=== PATIENT | male | born 1960 | race Caucasian/White ===

== ENCOUNTER 2016-06-29 12:27 | Inpatient (IN) | payer OTHER ==
[~2016-06-29] VITALS: Ht 177.8 cm; Wt 123.8 kg
[2016-06-29 13:15] VITALS: BP 106/72
[2016-06-29] MEDS ORDERED: ONDANSETRON PF 4 MG/2 ML VIAL. IV PRN (14:30)
[2016-06-29] MEDS ORDERED: DEXTROSE 50% 25 GM / 50ML DISP.SYRIN. IV PRN (14:30)
[2016-06-29 15:14] VITALS: BP 110/69
--- NOTE | 2016-06-29 15:29 | RAD ---
Exam performed: 2 views of the chest. Indication: abdominal pain, pt states came in for dehydration. Date of Service:06/29/2016 4:29 PM . Comparison : None available. Findings: PA and lateral radiographs of the chest reveal a normal cardiomediastinal contour. Pulmonary vascularity is unremarkable. The lungs are clear. No pleural fluid is seen. The visualized osseous structures are unremarkable. Impression: No acute cardiopulmonary process seen.
[2016-06-29] MEDS: IV NORMAL SALINE 1000ML BAG 1,000 ML IV SCH (16:34)
[2016-06-29 16:44] LABS: ALBUMIN 2.3 g/dL (3.4-5.0); ALBUMIN/GLOBULIN RATIO 0.4 (1.0-1.7); CALCIUM 9.4 mg/dL (8.5-10.1); CREATININE 1.7 mg/dL (0.7-1.3); GFR 41.8; POTASSIUM 5.8 mmol/L (3.5-5.1); TOTAL BILIRUBIN 0.4 mg/dL (0.2-1.0); TOTAL PROTEIN 7.8 g/dL (6.4-8.2)
--- NOTE | 2016-06-29 16:55 | EKG ---
[facility] [address] [place] [address] Test Date: 2016-06-29 Test Time: 16:49:40 Pat Name: DORA LIMA Department: Room: 536 1 Gender: M Wound Care Coordinator: DARIANA : 1960 Requested By: GEE SALGADO Order Number: [id number] Reading MD: Measurements Intervals [place] Rate: 107 P: 90 AL: 170 QRS: -40 QRSD: 84 T: 31 QT: 304 QTc: 411 Interpretive Statements SINUS TACHYCARDIA ABNORMAL LEFT AXIS DEVIATION LOW LIMB LEAD VOLTAGE QRS(T) CONTOUR ABNORMALITY CONSISTENT WITH INFERIOR INFARCT PROBABLY OLD ABNORMAL ECG RI6.01 Unconfirmed report No previous ECG available for comparison
--- NOTE | 2016-06-29 17:05 | RAD ---
Exam performed: Complete abdominal ultrasound. History: Diffuse abdominal pain. Date of service: 06/29/16. Comparison: None available Technique: Real-time grayscale imaging of the complete abdomen is performed and images are obtained. Findings: The liver demonstrates diffuse steatosis. No focal lesions are seen. The gallbladder is normal. The right kidney measures 10.3 cm in length without hydronephrosis or nephrolithiasis. The left kidney is enlarged and measures 14.3 cm. There is a large solid-appearing mass with calcifications measuring 8.0 x 7.5 x 6.1 cm emanating from the left inferior renal pole. Pancreas, IVC and aorta are poorly visualized. Spleen is normal. No free fluid. Impression: Solid appearing mass arising from the left kidney as outlined above. Evaluation with CT abdomen with contrast using renal protocol may be of additional benefit.
[2016-06-29] MEDS: PANTOPRAZOLE 40 MG TABLET. PO SCH (17:13)
[2016-06-29] MEDS: INSULIN ASPART 300 UNITS/3 ML INSULN.PEN SQ SCH (17:17)
--- NOTE | 2016-06-29 17:42 | PDOC ---
OBJECTIVE Vital Signs Vital Signs Date Time Temp Pulse Resp B/P Pulse Ox O2 Delivery O2 Flow Rate FiO2 06/29/16 15:14 97.3 102 20 110/69 98 Room Air 97.3 06/29/16 13:15 97.5 106 20 106/72 99 Room Air 97.5 ASSESSMENT/PLAN Assessment/Plan [id number] H&P dictated Problems: COMMENT Lab Laboratory Tests Test 06/29/16 15:00 06/29/16 17:00 Sodium Level 130mmol/L (136-145) Potassium Level 5.8mmol/L (3.5-5.1) Chloride Level 93mmol/L (98-107) Carbon Dioxide Level 21mmol/L (21-32) Anion Gap 16 (6-14) Blood Urea Nitrogen 51mg/dL (8-26) Creatinine 1.7mg/dL (0.7-1.3) Estimated GFR (Cockcroft-Gault) 41.8 BUN/Creatinine Ratio 30 (6-20) Glucose Level 335mg/dL (70-99) Calcium Level 9.4mg/dL (8.5-10.1) Total Bilirubin 0.4mg/dL (0.2-1.0) Aspartate Amino Transf (AST/SGOT) 19U/L (15-37) Alanine Aminotransferase (ALT/SGPT) 24U/L (16-63) Alkaline Phosphatase 156U/L (46-116) Troponin I Quantitative < 0.017ng/mL (0.000-0.055) Total Protein 7.8g/dL (6.4-8.2) Albumin 2.3g/dL (3.4-5.0) Albumin/Globulin Ratio 0.4 (1.0-1.7) Thyroid Stimulating Hormone (TSH) 0.683uIU/mL (0.358-3.74) Glucose (Fingerstick) 303mg/dL (70-99) GEE SALGADO MD Jun 29, 2016 17:42
[2016-06-29] MEDS ORDERED: METF10002 PO (17:47)
[2016-06-29] MEDS ORDERED: INSU100C SQ (17:47)
[2016-06-29] MEDS ORDERED: TRIA1TAB5 PO (17:47)
[2016-06-29] MEDS ORDERED: AMLO5TAB2 PO (17:47)
[2016-06-29] MEDS ORDERED: INSU100I13 SQ (17:47)
[2016-06-29] MEDS ORDERED: GLIM4TAB2 PO (17:47)
[2016-06-29] MEDS ORDERED: BENA40TA2 PO (17:47)
[2016-06-29 19:22] LABS: BILIRUBIN,URINE NEGATIVE (NEG); GLUCOSE,URINE 250 mg/dL (NEG); NITRITE,URINE NEGATIVE (NEG); PROTEIN,URINE NEGATIVE (NEG-TRACE); UROBILINOGEN,URINE 0.2 mg/dL (0.2 mg/dL)
[2016-06-29 19:32] LABS: BACTERIA,URINE 0 /HPF (0-FEW); RBC,URINE 0 /HPF (0-2); WBC,URINE 0 /HPF (0-4)
--- NOTE | 2016-06-29 19:55 | PREOP HP ---
DATE OF SERVICE: 06/29/2016 The patient's room number is 536. HISTORY OF PRESENT ILLNESS: The patient is a 55-year-old gentleman who has been sick for a couple of weeks with symptoms of nausea, vomiting and diarrhea and gastroenteritis symptoms. He was seen in the office for that and was starting to feel better with diarrhea. His blood pressure was low and his heart rate was high. At that time, he was instructed to hold all his blood pressure medication and cut his insulin in half. His labs came back the next day showing elevated BUN and creatinine. I called him and advised him that he needs to be admitted to be hydrated. He stated, however, that he is feeling much better and he did not want ____ in the hospital and that he will continue to drink fluid and come back within few days to repeat his labs. He comes in today. He is not having any more diarrhea and no more vomiting, but he is continuing to be nauseated. He is very weak. He has not been able to eat. He does not feel good. He is very pale and tired looking, generally not feeling good. PAST MEDICAL HISTORY: Significant for diabetes mellitus type 2, insulin requiring. He does have hypertension, hyperlipidemia, history of prostate cancer being treated with radiation and hormonal therapy. He does not have a known history of coronary artery disease. REVIEW OF SYSTEMS: CONSTITUTIONAL: He denies fever or chills, but complaining of fatigue and weakness. EYES: The patient denies visual changes. UPPER RESPIRATORY: He denies sore throat or congestion. CARDIOVASCULAR: He denies chest pain. PULMONARY: He denies shortness of breath. GASTROINTESTINAL: He does have abdominal discomfort and abdominal pain which has slightly improved. He did have diarrhea, which has stopped now, but he continues to have nausea and decreased appetite. GENITOURINARY: He does have urinary hesitancy and frequency. NEUROLOGY: He is weak in general. He denies focal weakness. He does not have headache. DERMATOLOGY: He denies rash. PHYSICAL EXAMINATION: VITAL SIGNS: His temperature 97.5, pulse 106, blood pressure 106/72. Oximetry 99 on room air. GENERAL: He is alert and oriented, pleasant, and cooperative. HEENT: His tympanic membranes are clear. His mucous membranes are dry. He is pale in color. NECK: Supple. LUNGS: Fairly clear to auscultation. HEART: Mildly tachycardic. ABDOMEN: Soft. Mild diffuse tenderness, mild epigastric tenderness, no rebound, no guarding, no masses, no bruits. EXTREMITIES: No edema, clubbing or cyanosis. IMPRESSION: 1. Recent gastroenteritis and persistent gastritis. 2. Acute renal failure due to dehydration, nausea, vomiting and diarrhea with electrolyte imbalance. 3. Diabetes mellitus type 2, insulin requiring. 4. History of prostate cancer. 5. Renal sonogram was done on his admission and showed a solid mass on the left kidney. A CT scan without contrast was ordered. Renal consult was done. We will continue hydration. Dr. Willams will be following during the weekend. GEE SALGADO MD DR: VALARIE/christopher JOB#: [id number] / [id number]
[2016-06-29 20:00] VITALS: BP 117/69
[2016-06-29 20:03] LABS: BASO # 0.1 x10^3/uL (0.0-0.2); BASO % 0 % (0-3); EOS % 0 % (0-3); HEMOGLOBIN 10.4 g/dL (13.0-17.5); LYMPH # 0.9 x10^3/uL (1.0-4.8); LYMPH % 5 % (24-48); MEAN CORPUSCULAR HEMOGLOBIN 27 pg (25-35); MEAN CORPUSCULAR HGB CONC 31 g/dL (31-37); MEAN CORPUSCULAR VOLUME 85 fL (79-100); MONO % 8 % (0-9); NEUT % 87 % (31-73); PLATELET COUNT 427 x10^3/uL (140-400); RED CELL DISTRIBUTION WIDTH 14.8 % (11.5-14.5)
[2016-06-29 20:43] LABS: PLT ESTIMATE INCREASED (ADEQUATE)
[2016-06-29] MEDS ORDERED: INSULIN DETEMIR 300 UNITS/3 ML INSULN.PEN. SQ SCH (21:00)
[2016-06-29] MEDS: ATORVASTATIN CALCIUM 10 MG TABLET. PO SCH (21:21)
[2016-06-29] MEDS: INSULIN DETEMIR 300 UNITS/3 ML INSULN.PEN. SQ SCH (21:24)
[2016-06-29] MEDS: ZOLPIDEM 5 MG TABLET. PO PRN (22:34)
[2016-06-29] MEDS: HYDROCODONE/APAP 7.5/325MG TABLET. PO PRN (22:34)
[2016-06-29 23:00] VITALS: BP 117/69
[2016-06-30] VITALS (7 sets, daily range): BP systolic 107–122; BP diastolic 65–73
[2016-06-30] MEDS: IV NORMAL SALINE 1000ML BAG 1,000 ML IV SCH ×3 (02:59→18:52)
[2016-06-30] MEDS: PANTOPRAZOLE 40 MG TABLET. PO SCH (08:15)
[2016-06-30] MEDS: BICALUTAMIDE 50 MG TABLET PO SCH (08:15)
[2016-06-30] MEDS: INSULIN ASPART 300 UNITS/3 ML INSULN.PEN SQ SCH ×6 (08:20→17:00)
[2016-06-30] MEDS ORDERED: MAGNESIUM SULFATE 2GM 50 ML IV PRN (10:45)
--- NOTE | 2016-06-30 10:47 | PDOC2 ---
DATE OF CONSULT Date of Consult 06/30/2015 REASON FOR CONSULT Reason for Consult VICKY REFERRING PHYSICIAN Referring Provider Dr Pulido CHIEF COMPLAINT Chief Complaint VICKY and other ABN Labs SOURCE Source Pt HPI HPI as dictated CURRENT MEDICATIONS Current Meds Current Medications Medications (Trade) Dose Ordered Sig/Adilia Route PRN Reason Start Time Stop Time Status Last Admin Dose Admin Sodium Chloride (Iv Sodium Chloride 0.9% 1000ml Bag) 1,000 ml @ 100 mls/hr Q10H IV 06/29/16 14:30 06/30/16 02:59 Insulin Aspart (Novolog) 0-9 UNITS TIDWMEALS SQ 06/29/16 17:00 06/30/16 08:21 Pantoprazole Sodium (Protonix) 40 mg DAILYAC PO 06/29/16 16:30 06/30/16 08:15 Atorvastatin Calcium (Lipitor) 10 mg QHS PO 06/29/16 21:00 06/29/16 21:21 Bicalutamide (Casodex) 50 mg DAILY PO 06/30/16 09:00 06/30/16 08:15 Insulin Detemir (Levemir) 40 units QHS SQ 06/29/16 21:00 06/29/16 21:24 Insulin Aspart (Novolog) 10 units TIDAC SQ 06/30/16 07:30 06/30/16 08:20 Acetaminophen/ Hydrocodone Bitart (Lortab 7.5/325) 1 tab PRN Q4HRS PRN PO SEVERE PAIN 06/29/16 22:00 06/29/16 22:34 Zolpidem Tartrate (Ambien) 5 mg PRN QHS PRN PO INSOMNIA, MAY REPEAT IN 1HR 06/29/16 22:00 06/29/16 22:34 Home Meds Reviewed as documented ALLERGIES Allergies: Coded Allergies: No Known Allergies (Verified Allergy, Unknown, 06/29/16) ROS ROS as outlined in HPI VITAL SIGNS Vital Signs VS - Last 72 Hours, by Label Date Time Temp Pulse Resp B/P Pulse Ox O2 Delivery O2 Flow Rate FiO2 06/30/16 07:00 98.4 110 20 122/72 100 Nasal Cannula 2.0 98.4 06/30/16 04:41 98.6 108 18 117/69 98 Room Air 2.0 98.6 06/30/16 03:00 208.6 108 117/69 98 Room Air 2.0 208.6 06/29/16 23:57 20 Room Air 06/29/16 23:00 208.6 108 117/69 98 Room Air 2.0 208.6 06/29/16 22:34 20 Room Air 06/29/16 21:20 Room Air 06/29/16 20:00 98.1 108 20 117/69 98 Room Air 2.0 98.1 06/29/16 20:00 208.6 108 117/69 98 Room Air 2.0 208.6 06/29/16 15:14 97.3 102 20 110/69 98 Room Air 97.3 06/29/16 14:00 Room Air 06/29/16 13:15 97.5 106 20 106/72 99 Room Air 97.5 PHYSICAL EXAM Physical Exam General Appearance: Awake Alert Oriented x 3 In no Distress Eyes: VIsion Unchanged Conjunctiva Normal EN: No EN Drainage Mucous Memb. moist Neck: no JVD no JVP Supple no Thyromegaly CVS: S1 S2 no Murmur No Gallop No Rub no Edema; Tachy Resp: no Rales no Rhonchi no Acc. 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 Current FLuid and E-lyte status does not necessitate emergent need for Dialysis. Will re-evaluate for Dialysis in am Vol Dpeltion - (from NVD and diuretics) IVF as ongoing - symptomatically better already Renal Mass- CT done and report pending - IVC once Creat is better. May need NAC too ^K OA - recheck labs for today - suspect due to ^ FSBS. Underlying DM (insuline using) (? Uncontrolled vs due to recent decrease in Meds as outlined in H&P ) - defer to Dr Pulido. Anemia: check Iron; may need Epogen Transfuse as needed. HTN: Current BP meds reviewed. See orders for changes. ? Underlying CKD cannot be ruled out. ^ Protein gap - PEPs as ordered HypoNatremia - anticipate imtpovement with IV NS - suspect due to NV Discussed Plan of Care and prognosis etc. at length with pt. IMAGES Images: Solid appearing mass arising from the left kidney as outlined above. Evaluation with CT abdomen with contrast using renal protocol may be of additional benefit. LABS Labs: Laboratory Tests Test 06/29/16 15:00 06/29/16 17:00 06/29/16 18:55 06/29/16 19:45 Sodium Level 130mmol/L (136-145) Chloride Level 93mmol/L (98-107) Carbon Dioxide Level 21mmol/L (21-32) Anion Gap 16 (6-14) Blood Urea Nitrogen 51mg/dL (8-26) Estimated GFR (Cockcroft-Gault) 41.8 BUN/Creatinine Ratio 30 (6-20) Glucose Level 335mg/dL (70-99) Calcium Level 9.4mg/dL (8.5-10.1) Total Bilirubin 0.4mg/dL (0.2-1.0) Aspartate Amino Transf (AST/SGOT) 19U/L (15-37) Alkaline Phosphatase 156U/L (46-116) Troponin I Quantitative < 0.017ng/mL (0.000-0.055) Total Protein 7.8g/dL (6.4-8.2) Albumin 2.3g/dL (3.4-5.0) Albumin/Globulin Ratio 0.4 (1.0-1.7) Glucose (Fingerstick) 303mg/dL (70-99) Urine Collection Type Unknown Urine Color Yellow Urine Clarity Clear Urine pH 5.0 Urine Specific [place] 1.020 Urine Protein Negativemg/dL (NEG-TRACE) Urine Glucose (UA) 250mg/dL (NEG) Urine Ketones (Stick) Tracemg/dL (NEG) Urine Blood Negative (NEG) Urine Nitrite Negative (NEG) Urine Bilirubin Negative (NEG) Urine Urobilinogen Dipstick 0.2mg/dL (0.2 mg/dL) Urine Leukocyte Esterase Negative (NEG) Urine RBC 0/HPF (0-2) Urine WBC 0/HPF (0-4) Urine Bacteria 0/HPF (0-FEW) Urine Hyaline Casts Moderate/HPF Urine Mucus Mod/LPF White Blood Count 18.0x10^3/uL (4.0-11.0) Red Blood Count 3.90x10^6/uL (4.30-5.70) Hemoglobin 10.4g/dL (13.0-17.5) Hematocrit 33.0% (39.0-53.0) Mean Corpuscular Volume 85fL (79-100) Mean Corpuscular Hemoglobin 27pg (25-35) Mean Corpuscular Hemoglobin Concent 31g/dL (31-37) Red Cell Distribution Width 14.8% (11.5-14.5) Platelet Count 427x10^3/uL (140-400) Neutrophils (%) (Auto) 87% (31-73) Lymphocytes (%) (Auto) 5% (24-48) Monocytes (%) (Auto) 8% (0-9) Eosinophils (%) (Auto) 0% (0-3) Basophils (%) (Auto) 0% (0-3) Neutrophils # (Auto) 15.6x10^3uL (1.8-7.7) Lymphocytes # (Auto) 0.9x10^3/uL (1.0-4.8) Monocytes # (Auto) 1.4x10^3/uL (0.0-1.1) Eosinophils # (Auto) 0.0x10^3/uL (0.0-0.7) Basophils # (Auto) 0.1x10^3/uL (0.0-0.2) Segmented Neutrophils % 89% (35-66) Band Neutrophils % 2% (0-9) Lymphocytes % 4% (24-48) Monocytes % 5% (0-10) Platelet Estimate Increased (ADEQUATE) Test 06/29/16 21:20 06/30/16 08:12 Glucose (Fingerstick) 318mg/dL (70-99) 206mg/dL (70-99) CASPER GARCIA MD Jun 30, 2016 10:46
--- NOTE | 2016-06-30 11:41 | PDOC ---
GENERAL General: vss and afebrile. awake and alert. family in attendance. feels better today and family feels he looks better. renal consult appreciated. will repeat labs in am. solid mass left kidney on us with ct pending. continue hydration for now and await pending tests. per family has been going downhill for at least a couple of months. has symptoms suggestive of gastroparesis. hopefully does not have advanced renal cell ca. Problems: VITAL SIGNS Vital Signs: Vital Signs Date Time Temp Pulse Resp B/P Pulse Ox O2 Delivery O2 Flow Rate FiO2 06/30/16 11:00 97.9 105 20 107/65 100 Nasal Cannula 2.0 97.9 I & O I & O Intake and Output 06/30/16 07:00 Intake Total 1456 ml Output Total 450 ml Balance 1006 ml Intake Oral 240 ml IV Total 1216 ml Output Urine Total 450 ml # Voids 2 ALLERGIES Allergies: Allergies Coded Allergies Type Severity Reaction Last Updated Verified No Known Allergies Allergy Unknown 06/29/16 Yes MEDS Medications: Current Medications Medications (Trade) Dose Ordered Sig/Adilia Start Time Stop Time Status Last Admin Dose Admin Acetaminophen/ Hydrocodone Bitart (Lortab 7.5/325) 1 tab PRN Q4HRS PRN 06/29/16 22:00 06/29/16 22:34 1 TAB Atorvastatin Calcium (Lipitor) 10 mg QHS 06/29/16 21:00 06/29/16 21:21 10 MG Bicalutamide (Casodex) 50 mg DAILY 06/30/16 09:00 06/30/16 08:15 50 MG Dextrose 12.5 gm PRN Q15MIN PRN 06/29/16 14:30 Insulin Aspart (Novolog) 10 units TIDAC 06/30/16 07:30 06/30/16 08:20 10 UNITS Insulin Detemir (Levemir) 40 units QHS 06/29/16 21:00 06/29/16 21:24 40 UNITS Magnesium Sulfate/ Dextrose (Magnesium Sulfate PREMIX 2GM) 50 ml @ 25 mls/hr PRN DAILY PRN 06/30/16 10:45 Ondansetron HCl (Zofran) 4 mg PRN Q4HRS PRN 06/29/16 14:30 Pantoprazole Sodium (Protonix) 40 mg DAILYAC 06/29/16 16:30 06/30/16 08:15 40 MG Sodium Chloride (Iv Sodium Chloride 0.9% 1000ml Bag) 1,000 ml @ 125 mls/hr Q8H 06/29/16 14:30 06/30/16 11:11 125 MLS/HR Zolpidem Tartrate 5 mg 5 mg PRN QHS PRN 06/29/16 22:00 06/29/16 22:34 5 MG LAB Lab: Laboratory Tests Test 06/29/16 15:00 06/29/16 17:00 06/29/16 18:55 06/29/16 19:45 Sodium Level 130mmol/L (136-145) Potassium Level 5.8mmol/L (3.5-5.1) Chloride Level 93mmol/L (98-107) Carbon Dioxide Level 21mmol/L (21-32) Anion Gap 16 (6-14) Blood Urea Nitrogen 51mg/dL (8-26) Creatinine 1.7mg/dL (0.7-1.3) Estimated GFR (Cockcroft-Gault) 41.8 BUN/Creatinine Ratio 30 (6-20) Glucose Level 335mg/dL (70-99) Calcium Level 9.4mg/dL (8.5-10.1) Total Bilirubin 0.4mg/dL (0.2-1.0) Aspartate Amino Transf (AST/SGOT) 19U/L (15-37) Alanine Aminotransferase (ALT/SGPT) 24U/L (16-63) Alkaline Phosphatase 156U/L (46-116) Troponin I Quantitative < 0.017ng/mL (0.000-0.055) Total Protein 7.8g/dL (6.4-8.2) Albumin 2.3g/dL (3.4-5.0) Albumin/Globulin Ratio 0.4 (1.0-1.7) Thyroid Stimulating Hormone (TSH) 0.683uIU/mL (0.358-3.74) Glucose (Fingerstick) 303mg/dL (70-99) Urine Collection Type Unknown Urine Color Yellow Urine Clarity Clear Urine pH 5.0 Urine Specific [place] 1.020 Urine Protein Negativemg/dL (NEG-TRACE) Urine Glucose (UA) 250mg/dL (NEG) Urine Ketones (Stick) Tracemg/dL (NEG) Urine Blood Negative (NEG) Urine Nitrite Negative (NEG) Urine Bilirubin Negative (NEG) Urine Urobilinogen Dipstick 0.2mg/dL (0.2 mg/dL) Urine Leukocyte Esterase Negative (NEG) Urine RBC 0/HPF (0-2) Urine WBC 0/HPF (0-4) Urine Bacteria 0/HPF (0-FEW) Urine Hyaline Casts Moderate/HPF Urine Mucus Mod/LPF White Blood Count 18.0x10^3/uL (4.0-11.0) Red Blood Count 3.90x10^6/uL (4.30-5.70) Hemoglobin 10.4g/dL (13.0-17.5) Hematocrit 33.0% (39.0-53.0) Mean Corpuscular Volume 85fL (79-100) Mean Corpuscular Hemoglobin 27pg (25-35) Mean Corpuscular Hemoglobin Concent 31g/dL (31-37) Red Cell Distribution Width 14.8% (11.5-14.5) Platelet Count 427x10^3/uL (140-400) Neutrophils (%) (Auto) 87% (31-73) Lymphocytes (%) (Auto) 5% (24-48) Monocytes (%) (Auto) 8% (0-9) Eosinophils (%) (Auto) 0% (0-3) Basophils (%) (Auto) 0% (0-3) Neutrophils # (Auto) 15.6x10^3uL (1.8-7.7) Lymphocytes # (Auto) 0.9x10^3/uL (1.0-4.8) Monocytes # (Auto) 1.4x10^3/uL (0.0-1.1) Eosinophils # (Auto) 0.0x10^3/uL (0.0-0.7) Basophils # (Auto) 0.1x10^3/uL (0.0-0.2) Segmented Neutrophils % 89% (35-66) Band Neutrophils % 2% (0-9) Lymphocytes % 4% (24-48) Monocytes % 5% (0-10) Platelet Estimate Increased (ADEQUATE) Test 06/29/16 21:20 06/30/16 08:12 Glucose (Fingerstick) 318mg/dL (70-99) 206mg/dL (70-99) APPL,AGATHA A MD Jun 30, 2016 11:41
[2016-06-30 11:57] LABS: IRON,SERUM 20 ug/dL (65-175)
[2016-06-30 11:58] LABS: % SAT IRON 11 % (15-34)
--- NOTE | 2016-06-30 14:04 | RAD ---
CT scan of the abdomen and pelvis without contrast 06/29/2016 Clinical history: Solid mass seen on ultrasound involving the left kidney. Further evaluation with a CT scan was recommended. Technique: Unenhanced, contiguous, 2 mm axial sections were obtained through the abdomen and pelvis. Intravenous contrast was not administered due to the patient's diminished GFR. One or more of the following individualized dose reduction techniques were utilized for this study: 1. Automated exposure control. 2. Adjustment of the mA and/or kV according to patient size. 3. Use of iterative reconstruction technique. Findings: Comparison is made to the patient's ultrasound of the abdomen dated 06/29/2016. Images through the lung bases demonstrate linear bands of subsegmental atelectasis bilaterally. A 3 mm calcified granuloma is seen involving the right lower lobe. Several poorly defined low-attenuation masslike areas are seen scattered throughout the right lobe of the liver. These measure 2 to 5.5 cm in size. They are concerning for hepatic metastasis. The spleen, right adrenal gland and right kidney are within normal limits. A rounded solid mass is seen extending anteriorly from the lower pole of the left kidney. This corresponds to the abnormality seen on ultrasound. It measures 7.5 x 7.5 x 6.2 cm in transverse, craniocaudal and AP dimensions. It is concerning for a neoplastic process (renal cell carcinoma). A heterogeneous poorly defined mass is seen which involves both the left adrenal gland and the distal body of the pancreas. It measures 4.8 x 4.0 x 4.4 cm and transverse, AP and craniocaudal dimensions.. Based on involvement of both the pancreas and adrenal gland. It is difficult to determine whether this mass represents an adrenal carcinoma invading the pancreas versus a pancreatic carcinoma invading the left adrenal gland. Mild atherosclerotic calcification of the abdominal aorta and its branches is noted. The abdominal aorta tapers normally. The gallbladder is slightly contracted. No free fluid or free air is seen within the abdomen. There is no evidence of bowel obstruction. No retroperitoneal lymphadenopathy is seen. The appendix is well visualized and is within normal limits. Images through the pelvis demonstrate the urinary bladder distended with urine. Fiducial type markers are seen in the region of the prostate gland. No free fluid is seen. No pelvic or inguinal lymphadenopathy is noted. Degenerative changes are seen involving the the lower thoracic and mid and lower lumbar spine and both hips. Impression: 1. 7.5 cm solid mass is seen arising from the lower pole of the left kidney. This corresponds to the abnormality seen on the patient's ultrasound. It is concerning for a renal neoplasm. 2. 4.8 cm poorly defined mass is seen which involves the left adrenal gland and body of the pancreas. It is difficult to determine whether this mass represents an adrenal carcinoma invading the pancreas versus a pancreatic carcinoma invading the left adrenal gland as outlined above. 3. Multiple low-attenuation mass lesions are seen involving the liver which are concerning for hepatic metastasis. The patient's nurse was notified of this finding.
[2016-06-30] MEDS: ATORVASTATIN CALCIUM 10 MG TABLET. PO SCH (21:45)
[2016-06-30] MEDS: INSULIN DETEMIR 300 UNITS/3 ML INSULN.PEN. SQ SCH (21:48)
--- NOTE | 2016-06-30 22:35 | CONS ---
DATE OF CONSULTATION: 06/30/2016 PRIMARY PHYSICIAN: Mukund Pulido MD REASON FOR CONSULTATION: Acute renal failure. HISTORY OF PRESENT ILLNESS: The patient is a pleasant 55-year-old gentleman who apparently has had nausea, vomiting and diarrhea for about a week. He was seen in Dr. Pulido's office and medication changes were made. He, however, did not feel better and was admitted to the hospital for further evaluation. His potassium was noted to be elevated, he is anemic, and BUN and creatinine were also elevated. He was noted to have a low sodium at 130. In this setting, we were asked to see him for all of the above problems. He has nausea, vomiting, apparently has improved significantly, currently by his reports. He did undergo an ultrasound of his kidneys and has a history of prostate cancer. He was also noted to have elevation of his fingerstick sugars. He is felt to have some fevers and chills, prior to this, his urine was dark, urine output was decreased by his reports, no orthostasis per se. PAST MEDICAL HISTORY: Significant for: 1. Diabetes for at least 12 years. No known diabetic retinopathy per se that he admits to. 2. Hypertension, on numerous blood pressure medications. 3. Now renal mass as noted. 4. Prostate cancer, for which he is on status post radiation. 5. History of substance abuse in the past. 6. No known history of coronary artery disease or CHF that he admits to. FAMILY HISTORY: Positive for one aunt who was diabetic and on dialysis. Diabetes does run in his family. SOCIAL HISTORY: Lives by himself, nonsmoker, nondrinker, positive substance abuse in the past. For rest of the details, please see electronic records. CASPER GARCIA MD DR: YOUSIF/christopher JOB#: [id number] / [id number]
[2016-07-01] MEDS: IV NORMAL SALINE 1000ML BAG 1,000 ML IV SCH ×2 (02:22→10:15)
[2016-07-01 03:00] VITALS: BP 95/58
[2016-07-01] MEDS: PANTOPRAZOLE 40 MG TABLET. PO SCH (06:33)
[2016-07-01 06:46] LABS: BASO % 0 % (0-3); EOS % 0 % (0-3); HEMATOCRIT 27.2 % (39.0-53.0); HEMOGLOBIN 8.7 g/dL (13.0-17.5); LYMPH # 0.9 x10^3/uL (1.0-4.8); LYMPH % 5 % (24-48); MEAN CORPUSCULAR HEMOGLOBIN 27 pg (25-35); MEAN CORPUSCULAR HGB CONC 32 g/dL (31-37); MEAN CORPUSCULAR VOLUME 84 fL (79-100); MONO % 9 % (0-9); NEUT % 85 % (31-73); PLATELET COUNT 342 x10^3/uL (140-400); RED BLOOD COUNT 3.25 x10^6/uL (4.30-5.70); RED CELL DISTRIBUTION WIDTH 14.6 % (11.5-14.5); WHITE BLOOD COUNT 16.6 x10^3/uL (4.0-11.0)
[2016-07-01 07:00] VITALS: BP 129/78
[2016-07-01 07:09] LABS: ALBUMIN 1.6 g/dL (3.4-5.0); ALBUMIN/GLOBULIN RATIO 0.3 (1.0-1.7); CALCIUM 8.6 mg/dL (8.5-10.1); CREATININE 1.1 mg/dL (0.7-1.3); POTASSIUM 3.8 mmol/L (3.5-5.1); TOTAL BILIRUBIN 0.4 mg/dL (0.2-1.0); TOTAL PROTEIN 7.1 g/dL (6.4-8.2)
[2016-07-01 07:13] LABS: PHOSPHORUS 2.3 mg/dL (2.6-4.7)
[2016-07-01] MEDS: INSULIN ASPART 300 UNITS/3 ML INSULN.PEN SQ SCH ×6 (08:26→17:46)
[2016-07-01] MEDS: BICALUTAMIDE 50 MG TABLET PO SCH (08:27)
[2016-07-01 11:00] VITALS: BP 103/55
--- NOTE | 2016-07-01 11:59 | PDOC ---
SUBJECTIVE ROS VICKY Doing OK overall CVS: no Orthopnea, no CP RESP: no SOB, n PLATA GI: no Nausea, no Vomiting : no Dysuria, no Urgency OBJECTIVE Vital Signs Vital Signs Date Time Temp Pulse Resp B/P Pulse Ox O2 Delivery O2 Flow Rate FiO2 07/01/16 11:00 99.9 120 20 103/55 98 Room Air 99.9 07/01/16 07:00 2.0 I & 0 Intake and Output 07/01/16 07:00 Intake Total 750 ml Output Total 1700 ml Balance -950 ml Intake Oral 750 ml Output Urine Total 1700 ml PHYSICAL EXAM Physical Exam General Appearance: Awake Alert Oriented x 3 In no Distress Eyes: VIsion Unchanged Conjunctiva Normal EN: No EN Drainage Mucous Memb. moist Neck: no JVD no JVP Supple no Thyromegaly CVS: S1 S2 no Murmur No Gallop No Rub no Edema; Tachy Resp: no Rales no Rhonchi no Acc. Muscle use GI: BAS +ve NO Bruit Non Tender Non Distended : no CVA tenderness; no Suprapubic Tenderness ASSESSMENT/PLAN Assessment/Plan ARF: suspect VMN from NVD. now resolved Vol Dpeltion - better and UO has picked up - watch off of IVF Renal Mass- CT report noted - Consider ONCOlogy eval ^K OA - resolved Underlying DM (insulin using) (? Uncontrolled vs due to recent decrease in Meds as outlined in H&P ) - defer to Dr Pulido. Anemia: check Iron; may need Epogen Transfuse as needed. HTN: Current BP meds reviewed. See orders for changes. Low HPos - supplement HypoNatremia - resolved Discussed Plan of Care and prognosis etc. at length with pt. COMMENT/RELEVANT DATA Meds Current Medications Medications (Trade) Dose Ordered Sig/Adilia Start Time Stop Time Status Last Admin Dose Admin Acetaminophen/ Hydrocodone Bitart (Lortab 7.5/325) 1 tab PRN Q4HRS PRN 06/29/16 22:00 06/29/16 22:34 1 TAB Atorvastatin Calcium (Lipitor) 10 mg QHS 06/29/16 21:00 06/30/16 21:45 10 MG Bicalutamide (Casodex) 50 mg DAILY 06/30/16 09:00 07/01/16 08:27 50 MG Dextrose 12.5 gm PRN Q15MIN PRN 06/29/16 14:30 Insulin Aspart (Novolog) 10 units TIDAC 06/30/16 07:30 07/01/16 08:26 10 UNITS Insulin Detemir (Levemir) 40 units QHS 06/29/16 21:00 06/30/16 21:48 40 UNITS Magnesium Sulfate/ Dextrose (Magnesium Sulfate PREMIX 2GM) 50 ml @ 25 mls/hr PRN DAILY PRN 06/30/16 10:45 Ondansetron HCl (Zofran) 4 mg PRN Q4HRS PRN 06/29/16 14:30 Pantoprazole Sodium (Protonix) 40 mg DAILYAC 06/29/16 16:30 07/01/16 06:33 40 MG Sodium Chloride (Iv Sodium Chloride 0.9% 1000ml Bag) 1,000 ml @ 125 mls/hr Q8H 06/29/16 14:30 07/01/16 10:15 125 MLS/HR Zolpidem Tartrate 5 mg 5 mg PRN QHS PRN 06/29/16 22:00 06/29/16 22:34 5 MG Lab Laboratory Tests Test 06/30/16 16:57 06/30/16 20:50 07/01/16 06:20 07/01/16 08:09 Glucose (Fingerstick) 115mg/dL (70-99) 157mg/dL (70-99) 174mg/dL (70-99) White Blood Count 16.6x10^3/uL (4.0-11.0) Red Blood Count 3.25x10^6/uL (4.30-5.70) Hemoglobin 8.7g/dL (13.0-17.5) Hematocrit 27.2% (39.0-53.0) Mean Corpuscular Volume 84fL (79-100) Mean Corpuscular Hemoglobin 27pg (25-35) Mean Corpuscular Hemoglobin Concent 32g/dL (31-37) Red Cell Distribution Width 14.6% (11.5-14.5) Platelet Count 342x10^3/uL (140-400) Neutrophils (%) (Auto) 85% (31-73) Lymphocytes (%) (Auto) 5% (24-48) Monocytes (%) (Auto) 9% (0-9) Eosinophils (%) (Auto) 0% (0-3) Basophils (%) (Auto) 0% (0-3) Neutrophils # (Auto) 14.1x10^3uL (1.8-7.7) Lymphocytes # (Auto) 0.9x10^3/uL (1.0-4.8) Monocytes # (Auto) 1.5x10^3/uL (0.0-1.1) Eosinophils # (Auto) 0.0x10^3/uL (0.0-0.7) Basophils # (Auto) 0.0x10^3/uL (0.0-0.2) Sodium Level 134mmol/L (136-145) Potassium Level 3.8mmol/L (3.5-5.1) Chloride Level 100mmol/L (98-107) Carbon Dioxide Level 23mmol/L (21-32) Anion Gap 11 (6-14) Blood Urea Nitrogen 19mg/dL (8-26) Creatinine 1.1mg/dL (0.7-1.3) Estimated GFR (Cockcroft-Gault) 69.0 BUN/Creatinine Ratio 17 (6-20) Glucose Level 202mg/dL (70-99) Calcium Level 8.6mg/dL (8.5-10.1) Phosphorus Level 2.3mg/dL (2.6-4.7) Magnesium Level 1.9mg/dL (1.8-2.4) Total Bilirubin 0.4mg/dL (0.2-1.0) Aspartate Amino Transf (AST/SGOT) 21U/L (15-37) Alanine Aminotransferase (ALT/SGPT) 20U/L (16-63) Alkaline Phosphatase 118U/L (46-116) Total Protein 7.1g/dL (6.4-8.2) Albumin 1.6g/dL (3.4-5.0) Albumin/Globulin Ratio 0.3 (1.0-1.7) Test 07/01/16 10:43 Glucose (Fingerstick) 217mg/dL (70-99) Other Impression: 1. 7.5 cm solid mass is seen arising from the lower pole of the left kidney. This corresponds to the abnormality seen on the patient's ultrasound. It is concerning for a renal neoplasm. 2. 4.8 cm poorly defined mass is seen which involves the left adrenal gland and body of the pancreas. It is difficult to determine whether this mass represents an adrenal carcinoma invading the pancreas versus a pancreatic carcinoma invading the left adrenal gland as outlined above. 3. Multiple low-attenuation mass lesions are seen involving the liver which are concerning for hepatic metastasis. The patient's nurse was notified of this finding. CASPER GARCIA MD Jul 01, 2016 11:59
--- NOTE | 2016-07-01 12:00 | PDOC ---
GENERAL General: vss and afebrile. awake and alert and feeling better.Hb decreased to 8.7. WBC decreased to 16.6K. Albumin is 1.6. Iron decreased. B12 is normal. Creatinine decreased to 1.1. 7.5 cm left renal mass and 4.8 cm left adrenal mass and ? pancreatic mass, and multiple liver masses cw with metastatic disease. will ask for oncology direction as to hightower of same. Discussed this with son and patient. Problems: VITAL SIGNS Vital Signs: Vital Signs Date Time Temp Pulse Resp B/P Pulse Ox O2 Delivery O2 Flow Rate FiO2 07/01/16 11:00 99.9 120 20 103/55 98 Room Air 99.9 07/01/16 07:00 2.0 I & O I & O Intake and Output 07/01/16 07:00 Intake Total 750 ml Output Total 1700 ml Balance -950 ml Intake Oral 750 ml Output Urine Total 1700 ml ALLERGIES Allergies: Allergies Coded Allergies Type Severity Reaction Last Updated Verified No Known Allergies Allergy Unknown 06/29/16 Yes MEDS Medications: Current Medications Medications (Trade) Dose Ordered Sig/Adilia Start Time Stop Time Status Last Admin Dose Admin Acetaminophen/ Hydrocodone Bitart (Lortab 7.5/325) 1 tab PRN Q4HRS PRN 06/29/16 22:00 06/29/16 22:34 1 TAB Atorvastatin Calcium (Lipitor) 10 mg QHS 06/29/16 21:00 06/30/16 21:45 10 MG Bicalutamide (Casodex) 50 mg DAILY 06/30/16 09:00 07/01/16 08:27 50 MG Dextrose 12.5 gm PRN Q15MIN PRN 06/29/16 14:30 Insulin Aspart (Novolog) 10 units TIDAC 06/30/16 07:30 07/01/16 08:26 10 UNITS Insulin Detemir (Levemir) 40 units QHS 06/29/16 21:00 06/30/16 21:48 40 UNITS Magnesium Sulfate/ Dextrose (Magnesium Sulfate PREMIX 2GM) 50 ml @ 25 mls/hr PRN DAILY PRN 06/30/16 10:45 Ondansetron HCl (Zofran) 4 mg PRN Q4HRS PRN 06/29/16 14:30 Pantoprazole Sodium (Protonix) 40 mg DAILYAC 06/29/16 16:30 2/5/17 06:33 40 MG Sodium Chloride (Iv Sodium Chloride 0.9% 1000ml Bag) 1,000 ml @ 125 mls/hr Q8H 06/29/16 14:30 07/01/16 10:15 125 MLS/HR Zolpidem Tartrate 5 mg 5 mg PRN QHS PRN 06/29/16 22:00 06/29/16 22:34 5 MG LAB Lab: Laboratory Tests Test 06/30/16 16:57 06/30/16 20:50 07/01/16 06:20 07/01/16 08:09 Glucose (Fingerstick) 115mg/dL (70-99) 157mg/dL (70-99) 174mg/dL (70-99) White Blood Count 16.6x10^3/uL (4.0-11.0) Red Blood Count 3.25x10^6/uL (4.30-5.70) Hemoglobin 8.7g/dL (13.0-17.5) Hematocrit 27.2% (39.0-53.0) Mean Corpuscular Volume 84fL (79-100) Mean Corpuscular Hemoglobin 27pg (25-35) Mean Corpuscular Hemoglobin Concent 32g/dL (31-37) Red Cell Distribution Width 14.6% (11.5-14.5) Platelet Count 342x10^3/uL (140-400) Neutrophils (%) (Auto) 85% (31-73) Lymphocytes (%) (Auto) 5% (24-48) Monocytes (%) (Auto) 9% (0-9) Eosinophils (%) (Auto) 0% (0-3) Basophils (%) (Auto) 0% (0-3) Neutrophils # (Auto) 14.1x10^3uL (1.8-7.7) Lymphocytes # (Auto) 0.9x10^3/uL (1.0-4.8) Monocytes # (Auto) 1.5x10^3/uL (0.0-1.1) Eosinophils # (Auto) 0.0x10^3/uL (0.0-0.7) Basophils # (Auto) 0.0x10^3/uL (0.0-0.2) Sodium Level 134mmol/L (136-145) Potassium Level 3.8mmol/L (3.5-5.1) Chloride Level 100mmol/L (98-107) Carbon Dioxide Level 23mmol/L (21-32) Anion Gap 11 (6-14) Blood Urea Nitrogen 19mg/dL (8-26) Creatinine 1.1mg/dL (0.7-1.3) Estimated GFR (Cockcroft-Gault) 69.0 BUN/Creatinine Ratio 17 (6-20) Glucose Level 202mg/dL (70-99) Calcium Level 8.6mg/dL (8.5-10.1) Phosphorus Level 2.3mg/dL (2.6-4.7) Magnesium Level 1.9mg/dL (1.8-2.4) Total Bilirubin 0.4mg/dL (0.2-1.0) Aspartate Amino Transf (AST/SGOT) 21U/L (15-37) Alanine Aminotransferase (ALT/SGPT) 20U/L (16-63) Alkaline Phosphatase 118U/L (46-116) Total Protein 7.1g/dL (6.4-8.2) Albumin 1.6g/dL (3.4-5.0) Albumin/Globulin Ratio 0.3 (1.0-1.7) Test 07/01/16 10:43 Glucose (Fingerstick) 217mg/dL (70-99) AGATHA ORDOÑEZ MD Jul 01, 2016 11:59
[2016-07-01] MEDS ORDERED: SODIUM PHOSPHATE 40 MMOL in IV DEXTROSE 5% 250 ML IV ONE (13:00)
[2016-07-01 15:00] VITALS: BP 125/76
[2016-07-01] MEDS: HYDROCODONE/APAP 7.5/325MG TABLET. PO PRN ×2 (15:34→20:38)
[2016-07-01 19:00] VITALS: BP 108/64
[2016-07-01] MEDS: ZOLPIDEM 5 MG TABLET. PO PRN (20:38)
[2016-07-01] MEDS: ATORVASTATIN CALCIUM 10 MG TABLET. PO SCH (20:38)
[2016-07-01] MEDS: INSULIN DETEMIR 300 UNITS/3 ML INSULN.PEN. SQ SCH (22:49)
[2016-07-01 23:00] VITALS: BP 89/54
[2016-07-02] VITALS (16 sets, daily range): BP systolic 107–146; BP diastolic 55–75
[2016-07-02 07:18] LABS: BASO % 0 % (0-3); EOS % 1 % (0-3); HEMATOCRIT 26.8 % (39.0-53.0); HEMOGLOBIN 8.3 g/dL (13.0-17.5); LYMPH # 0.7 x10^3/uL (1.0-4.8); LYMPH % 4 % (24-48); MEAN CORPUSCULAR HEMOGLOBIN 26 pg (25-35); MEAN CORPUSCULAR HGB CONC 31 g/dL (31-37); MEAN CORPUSCULAR VOLUME 84 fL (79-100); MONO % 9 % (0-9); NEUT % 86 % (31-73); PLATELET COUNT 288 x10^3/uL (140-400); RED CELL DISTRIBUTION WIDTH 14.3 % (11.5-14.5); WHITE BLOOD COUNT 15.3 x10^3/uL (4.0-11.0)
[2016-07-02] MEDS: INSULIN ASPART 300 UNITS/3 ML INSULN.PEN SQ SCH ×6 (07:30→17:25)
[2016-07-02 07:46] LABS: ALBUMIN 1.7 g/dL (3.4-5.0); CALCIUM 8.4 mg/dL (8.5-10.1); PHOSPHORUS 2.2 mg/dL (2.6-4.7); POTASSIUM 3.7 mmol/L (3.5-5.1)
[2016-07-02 08:08] LABS: INR 1.6 (0.8-1.1)
[2016-07-02] MEDS ORDERED: IOHEXOL 300 MG/ML 75 ML VIAL IV ONE (08:45)
--- NOTE | 2016-07-02 09:15 | PDOC ---
Provider Note Provider Note Onc consult dictated- [id number] Left renal mass, liver masses, left adrenal/ pancreatic mass- Likely malignancy of unclear etiology thus far. Anemia of chronic disease Elevated uric acid Plan: - IR bx or probable metastatic site - CT chest - Allopurinol - Hold of off Epo until underlying dx and tx plan made - Will set up f/u at our [facility] [place] office, likely early next week to review path results. HELEN CASTAÑEDA DO Jul 02, 2016 09:15
[2016-07-02] MEDS ORDERED: LIDOCAINE 1% / SOD BICARB 8.4% 20 ML VIAL. IJ ONE ×2 (10:45→11:15)
[2016-07-02] MEDS ORDERED: FENTANYL PF 250 MCG/5 ML VIAL. ONE (11:04)
[2016-07-02] MEDS ORDERED: MIDAZOLAM HCL/PF 5 MG/5 ML VIAL ONE (11:04)
[2016-07-02] MEDS ORDERED: NALOXONE 0.4 MG/ML VIAL. ONE (11:04)
[2016-07-02] MEDS ORDERED: FLUMAZENIL 0.5 MG/5 ML VIAL. IV ONE (11:04)
[2016-07-02] MEDS ORDERED: GELATIN SPONGE SIZE 12-7MM SPONGE. ONE (11:13)
[2016-07-02] MEDS ORDERED: FENTANYL PF 250 MCG/5 ML VIAL. IV ONE (11:15)
[2016-07-02] MEDS ORDERED: MIDAZOLAM HCL/PF 5 MG/5 ML VIAL IV ONE (11:15)
--- NOTE | 2016-07-02 11:31 | PDOC ---
BRIEF OPERATIVE NOTE Pre-Op Diagnosis Liver Masses Post-Op Diagnosis same Procedure Performed CT Liver Biospy Surgeon Devin Anesthesia Type: Conscious Sedation Specimens Obtained 5 x 18g cores Complications No immediate MARY SORTO MD Jul 02, 2016 11:31
--- NOTE | 2016-07-02 11:32 | PDOC ---
MODERATE SEDATION ASSESSMENT RISKS/ALTERNATIVES Risks/Alternatives Risks and alternatives of this type of sedation and procedure discussed with: RISK/ALTERNATIVES: Patient H & P ON CHART H & P H & P on chart and reviewed for co-morbid conditions and appropriate labs. H&P ON CHART: Yes STATUS PREG STATUS ASSESSED: Yes MEDS/ALLERGIES REVIEWED Meds/Allergies Reviewed Medications and Allergies including time and route of recently administered narcotics and sedatives. MEDS/ALLERGIES REVIEWED: Yes ASA RATING ASA RATING: II AIRWAY ASSESSMENT Airway Assessment Airway patency, oral function limitations, presence of caps, crowns, dentures, partials, and ability to extend neck assessed. AIRWAY ASSESSMENT: Yes MALLAMPATI SCORE MALLAMPATI SCORE: II PRE-SEDATION ASSESSMENT PRE-SEDATION ASSESSMENT: Yes MARY SORTO MD Jul 02, 2016 11:32
[2016-07-02] MEDS: PANTOPRAZOLE 40 MG TABLET. PO SCH (12:04)
[2016-07-02] MEDS: ALLOPURINOL 300 MG TABLET. PO SCH (12:04)
[2016-07-02] MEDS: BICALUTAMIDE 50 MG TABLET PO SCH (12:07)
--- NOTE | 2016-07-02 13:18 | PDOC ---
PROGRESS NOTES Subjective Subjective Pt awake and pleasant. NPO this am awaiting bx per IR. Objective Objective Pt awake and alert. NAD. VSS. Afebrile with tmax of 99.9. Vital Signs Date Time Temp Pulse Resp B/P Pulse Ox O2 Delivery O2 Flow Rate FiO2 07/02/16 12:30 97.7 112 19 127/69 98 Room Air 97.7 07/02/16 11:26 2.0 Intake and Output 07/02/16 07:00 Intake Total 750 ml Output Total 1600 ml Balance -850 ml Intake Oral 750 ml Output Urine Total 1600 ml # Voids 2 Plan Plan of Care 1. Left renal mass, liver masses, left adrenal/ pancreatic mass- Likely malignancy of unclear etiology thus far. -Oncology consulting -Bx today per IR 2. Anemia of chronic disease -Hgb 10.4 upon admission, 8.3 today -Epogen held by Oncology till dx determined -Recheck CBC in am 3. DM -Levemir and sliding scale Novolog -FSBS 100s-300s Comment Review of Relevant I have reviewed the following items marisol (where applicable) has been applied. Labs Laboratory Tests Test 06/30/16 16:57 06/30/16 20:50 07/01/16 06:20 07/01/16 08:09 Glucose (Fingerstick) 115mg/dL (70-99) 157mg/dL (70-99) 174mg/dL (70-99) White Blood Count 16.6x10^3/uL (4.0-11.0) Red Blood Count 3.25x10^6/uL (4.30-5.70) Hemoglobin 8.7g/dL (13.0-17.5) Hematocrit 27.2% (39.0-53.0) Mean Corpuscular Volume 84fL (79-100) Mean Corpuscular Hemoglobin 27pg (25-35) Mean Corpuscular Hemoglobin Concent 32g/dL (31-37) Red Cell Distribution Width 14.6% (11.5-14.5) Platelet Count 342x10^3/uL (140-400) Neutrophils (%) (Auto) 85% (31-73) Lymphocytes (%) (Auto) 5% (24-48) Monocytes (%) (Auto) 9% (0-9) Eosinophils (%) (Auto) 0% (0-3) Basophils (%) (Auto) 0% (0-3) Neutrophils # (Auto) 14.1x10^3uL (1.8-7.7) Lymphocytes # (Auto) 0.9x10^3/uL (1.0-4.8) Monocytes # (Auto) 1.5x10^3/uL (0.0-1.1) Eosinophils # (Auto) 0.0x10^3/uL (0.0-0.7) Basophils # (Auto) 0.0x10^3/uL (0.0-0.2) Sodium Level 134mmol/L (136-145) Potassium Level 3.8mmol/L (3.5-5.1) Chloride Level 100mmol/L (98-107) Carbon Dioxide Level 23mmol/L (21-32) Anion Gap 11 (6-14) Blood Urea Nitrogen 19mg/dL (8-26) Creatinine 1.1mg/dL (0.7-1.3) Estimated GFR (Cockcroft-Gault) 69.0 BUN/Creatinine Ratio 17 (6-20) Glucose Level 202mg/dL (70-99) Calcium Level 8.6mg/dL (8.5-10.1) Phosphorus Level 2.3mg/dL (2.6-4.7) Magnesium Level 1.9mg/dL (1.8-2.4) Total Bilirubin 0.4mg/dL (0.2-1.0) Aspartate Amino Transf (AST/SGOT) 21U/L (15-37) Alanine Aminotransferase (ALT/SGPT) 20U/L (16-63) Alkaline Phosphatase 118U/L (46-116) Total Protein 7.1g/dL (6.4-8.2) Albumin 1.6g/dL (3.4-5.0) Albumin/Globulin Ratio 0.3 (1.0-1.7) Test 07/01/16 10:43 07/01/16 16:47 07/01/16 22:40 07/02/16 07:00 Glucose (Fingerstick) 217mg/dL (70-99) 284mg/dL (70-99) 326mg/dL (70-99) White Blood Count 15.3x10^3/uL (4.0-11.0) Red Blood Count 3.20x10^6/uL (4.30-5.70) Hemoglobin 8.3g/dL (13.0-17.5) Hematocrit 26.8% (39.0-53.0) Mean Corpuscular Volume 84fL (79-100) Mean Corpuscular Hemoglobin 26pg (25-35) Mean Corpuscular Hemoglobin Concent 31g/dL (31-37) Red Cell Distribution Width 14.3% (11.5-14.5) Platelet Count 288x10^3/uL (140-400) Neutrophils (%) (Auto) 86% (31-73) Lymphocytes (%) (Auto) 4% (24-48) Monocytes (%) (Auto) 9% (0-9) Eosinophils (%) (Auto) 1% (0-3) Basophils (%) (Auto) 0% (0-3) Neutrophils # (Auto) 13.2x10^3uL (1.8-7.7) Lymphocytes # (Auto) 0.7x10^3/uL (1.0-4.8) Monocytes # (Auto) 1.3x10^3/uL (0.0-1.1) Eosinophils # (Auto) 0.1x10^3/uL (0.0-0.7) Basophils # (Auto) 0.0x10^3/uL (0.0-0.2) Prothrombin Time 18.0SEC (11.7-14.0) Prothromb Time International Ratio 1.6 (0.8-1.1) Sodium Level 134mmol/L (136-145) Potassium Level 3.7mmol/L (3.5-5.1) Chloride Level 99mmol/L (98-107) Carbon Dioxide Level 26mmol/L (21-32) Anion Gap 9 (6-14) Blood Urea Nitrogen 13mg/dL (8-26) Creatinine 1.0mg/dL (0.7-1.3) Estimated GFR (Cockcroft-Gault) 77.0 Glucose Level 224mg/dL (70-99) Calcium Level 8.4mg/dL (8.5-10.1) Phosphorus Level 2.2mg/dL (2.6-4.7) Magnesium Level 2.0mg/dL (1.8-2.4) Albumin 1.7g/dL (3.4-5.0) Test 07/02/16 07:44 07/02/16 10:51 Glucose (Fingerstick) 186mg/dL (70-99) 162mg/dL (70-99) Laboratory Tests Test 07/01/16 16:47 07/01/16 22:40 07/02/16 07:00 07/02/16 07:44 Glucose (Fingerstick) 284mg/dL (70-99) 326mg/dL (70-99) 186mg/dL (70-99) White Blood Count 15.3x10^3/uL (4.0-11.0) Red Blood Count 3.20x10^6/uL (4.30-5.70) Hemoglobin 8.3g/dL (13.0-17.5) Hematocrit 26.8% (39.0-53.0) Mean Corpuscular Volume 84fL (79-100) Mean Corpuscular Hemoglobin 26pg (25-35) Mean Corpuscular Hemoglobin Concent 31g/dL (31-37) Red Cell Distribution Width 14.3% (11.5-14.5) Platelet Count 288x10^3/uL (140-400) Neutrophils (%) (Auto) 86% (31-73) Lymphocytes (%) (Auto) 4% (24-48) Monocytes (%) (Auto) 9% (0-9) Eosinophils (%) (Auto) 1% (0-3) Basophils (%) (Auto) 0% (0-3) Neutrophils # (Auto) 13.2x10^3uL (1.8-7.7) Lymphocytes # (Auto) 0.7x10^3/uL (1.0-4.8) Monocytes # (Auto) 1.3x10^3/uL (0.0-1.1) Eosinophils # (Auto) 0.1x10^3/uL (0.0-0.7) Basophils # (Auto) 0.0x10^3/uL (0.0-0.2) Prothrombin Time 18.0SEC (11.7-14.0) Prothromb Time International Ratio 1.6 (0.8-1.1) Sodium Level 134mmol/L (136-145) Potassium Level 3.7mmol/L (3.5-5.1) Chloride Level 99mmol/L (98-107) Carbon Dioxide Level 26mmol/L (21-32) Anion Gap 9 (6-14) Blood Urea Nitrogen 13mg/dL (8-26) Creatinine 1.0mg/dL (0.7-1.3) Estimated GFR (Cockcroft-Gault) 77.0 Glucose Level 224mg/dL (70-99) Calcium Level 8.4mg/dL (8.5-10.1) Phosphorus Level 2.2mg/dL (2.6-4.7) Magnesium Level 2.0mg/dL (1.8-2.4) Albumin 1.7g/dL (3.4-5.0) Test 07/02/16 10:51 Glucose (Fingerstick) 162mg/dL (70-99) Medications Current Medications Sodium Chloride (Iv Sodium Chloride 0.9% 1000ml Bag) 1,000 ml @ 125 mls/hr Q8H IV Last administered on 07/01/16 10:15; Start 06/29/16 at 14:30; Stop 07/01/16 at 12:08; Status DC Insulin Aspart (Novolog) 0-9 UNITS TIDWMEALS SQ Last administered on 07/01/16 17:44; Start 06/29/16 at 17:00 Dextrose 12.5 gm PRN Q15MIN PRN IV SEE COMMENTS; Start 06/29/16 at 14:30 Insulin Detemir (Levemir) 20 units QHS SQ ; Start 06/29/16 at 21:00; Stop at 21:00; Status DC Pantoprazole Sodium (Protonix) 40 mg DAILYAC PO Last administered on 07/02/16 12:04; Start 06/29/16 at 16:30 Ondansetron HCl (Zofran) 4 mg PRN Q4HRS PRN IV NAUSEA/VOMITING; Start 06/29/16 at 14:30 Atorvastatin Calcium (Lipitor) 10 mg QHS PO Last administered on 07/01/16 20:38 ; Start 06/29/16 at 21:00 Bicalutamide (Casodex) 50 mg DAILY PO Last administered on 07/02/16 12:07; Start 06/30/16 at 09:00 Insulin Detemir (Levemir) 40 units QHS SQ Last administered on 07/01/16 22:49; Start 06/29/16 at 21:00 Insulin Aspart (Novolog) 10 units TIDAC SQ Last administered on 07/02/16 12:08 ; Start 06/30/16 at 07:30 Acetaminophen/ Hydrocodone Bitart (Lortab 7.5/325) 1 tab PRN Q4HRS PRN PO SEVERE PAIN Last administered on 07/01/16 20:38; Start 06/29/16 at 22:00 Zolpidem Tartrate 5 mg 5 mg PRN QHS PRN PO INSOMNIA, MAY REPEAT IN 1HR Last administered on 07/01/16 20:38; Start 06/29/16 at 22:00 Magnesium Sulfate/ Dextrose 50 ml @ 25 mls/hr PRN DAILY PRN IV for Mag < 1.7 on am labs; Start 06/30/16 at 10:45 Sodium Phosphate/ Dextrose 263.3333 ml @ 64.167 m... 1X ONCE IV Last administered on 07/01/16 12:35; Start 07/01/16 at 13:00; Stop 07/01/16 at 17:06; Status DC Iohexol (Omnipaque 300 Mg/ml) 75 ml 1X ONCE IV Last administered on 07/02/16 08:49; Start 07/02/16 at 08:45; Stop 07/02/16 at 08:46; Status DC Allopurinol (Zyloprim) 300 mg DAILY PO Last administered on 07/02/16 12:04; Start 07/02/16 at 09:30 Lidocaine/Sodium Bicarbonate (Buffered Lidocaine 1%) 20 ml 1X ONCE IJ Last administered on 07/02/16 10:45; Start 07/02/16 at 10:45; Stop 07/02/16 at 10:46; Status DC Naloxone HCl (Narcan) 0.4 mg STK-MED ONCE .ROUTE ; Start 07/02/16 at 11:04; Stop 07/02/16 at 11:05; Status DC Flumazenil (Romazicon) 0.5 mg STK-MED ONCE IV ; Start 07/02/16 at 11:04; Stop 2/ 6/17 at 11:05; Status DC Midazolam HCl (Versed) 5 mg STK-MED ONCE .ROUTE ; Start 07/02/16 at 11:04; Stop 07/02/16 at 11:05; Status DC Fentanyl Citrate (Fentanyl 5ml Vial) 250 mcg STK-MED ONCE .ROUTE ; Start at 11:04; Stop 07/02/16 at 11:05; Status DC Lidocaine/Sodium Bicarbonate (Buffered Lidocaine 1%) 20 ml 1X ONCE IJ ; Start 07/02/16 at 11:15; Stop 07/02/16 at 11:18; Status DC Midazolam HCl (Versed) 5 mg 1X ONCE IV Last administered on 07/02/16t 11:15; Start 07/02/16 at 11:15; Stop 07/02/16 at 11:18; Status DC Fentanyl Citrate (Fentanyl 5ml Vial) 250 mcg 1X ONCE IV Last administered on t 11:15; Start 07/02/16 at 11:15; Stop 07/02/16 at 11:18; Status DC Gelatin (Gelfoam Size 12-7mm) 1 each STK-MED ONCE .ROUTE ; Start 07/02/16 at 11: 13; Stop 07/02/16 at 11:14; Status DC Active Scripts Active Reported Humalog (Insulin Lispro) 100 Unit/1 Ml Cartridge 20 Unit SQ TIDWMEALS Amlodipine Besylate 5 Mg Tablet 5 Mg PO DAILY Metformin Hcl 1,000 Mg Tablet 1 Tab PO BID Benazepril Hcl 40 Mg Tablet 1 Tab PO DAILY Triamterene-Hctz 75-50 Mg Tab (Triamterene/Hydrochlorothiazid) 1 Each Tablet 1 Tab PO DAILY Glimepiride 4 Mg Tablet 1 Tab PO BID Lantus Solostar (Insulin Glargine,Hum.rec.anlog) 100 Unit/1 Ml Insuln.pen 60 Unit SQ QHS Vitals/I & O Vital Sign - Last 24 Hours 07/01/16 07/01/16 07/01/16 07/01/16 15:00 15:34 16:34 19:00 Temp 98.1 99.0 98.1 99.0 Pulse 98 108 Resp 20 18 B/P 125/76 108/64 Pulse Ox 100 98 98 97 O2 Delivery Room Air Room Air Room Air Room Air O2 Flow Rate 2.0 2.0 07/01/16 07/01/16 07/01/16 07/01/16 20:35 20:38 21:45 23:00 Temp 98.7 98.7 Pulse 101 Resp 20 20 20 B/P 89/54 Pulse Ox 96 O2 Delivery Room Air Room Air Room Air 07/02/16 07/02/16 07/02/16 07/02/16 03:00 07:00 08:15 11:00 Temp 98.5 98.8 99.1 98.5 98.8 99.1 Pulse 116 106 100 Resp 20 20 18 B/P 124/72 107/62 115/63 Pulse Ox 100 100 98 O2 Delivery Room Air Room Air Room Air Room Air 07/02/16 07/02/16 07/02/16 07/02/16 11:15 11:15 11:20 11:26 Pulse 69 89 111 Resp 16 17 Pulse Ox 97 99 98 99 O2 Delivery Room Air Nasal Cannula Nasal Cannula O2 Flow Rate 2.0 2.0 07/02/16 07/02/16 07/02/16 07/02/16 11:30 12:01 12:18 12:19 Pulse 111 111 116 Resp 16 B/P 120/74 132/75 Pulse Ox 98 99 O2 Delivery Room Air 07/02/16 12:30 Temp 97.7 97.7 Pulse 112 Resp 19 B/P 127/69 Pulse Ox 98 O2 Delivery Room Air Intake and Output 07/01/16 07/01/16 07/02/16 15:00 23:00 07:00 Intake Total 250 ml 500 ml Output Total 1600 ml Balance 250 ml -1100 ml AGATHA ORDOÑEZ MD Jul 02, 2016 13:18
--- NOTE | 2016-07-02 13:33 | PDOC ---
SUBJECTIVE ROS F.up Renal mass/ VICKY Doing OK OBJECTIVE Vital Signs Vital Signs Date Time Temp Pulse Resp B/P Pulse Ox O2 Delivery O2 Flow Rate FiO2 07/02/16 12:30 97.7 112 19 127/69 98 Room Air 97.7 07/02/16 11:26 2.0 I & 0 Intake and Output 07/02/16 07:00 Intake Total 750 ml Output Total 1600 ml Balance -850 ml Intake Oral 750 ml Output Urine Total 1600 ml # Voids 2 PHYSICAL EXAM Physical Exam General Appearance: Drowsy from recent Liver Bx Neck: No JVD or JVP Chest: CTA Aman Heart: S1 S2 Abdomen - Soft NTND Extremities - No Edema DIAGNOSIS/ASSESSMENT Assessment & Plan Renal Mass in the setting of Possible metastatic dz to the lIver - await bx results. Problems: COMMENT/RELEVANT DATA Meds Current Medications Medications (Trade) Dose Ordered Sig/Adilia Start Time Stop Time Status Last Admin Dose Admin Acetaminophen/ Hydrocodone Bitart (Lortab 7.5/325) 1 tab PRN Q4HRS PRN 06/29/16 22:00 07/01/16 20:38 1 TAB Allopurinol (Zyloprim) 300 mg DAILY 07/02/16 09:30 07/02/16 12:04 300 MG Atorvastatin Calcium (Lipitor) 10 mg QHS 06/29/16 21:00 07/01/16 20:38 10 MG Bicalutamide (Casodex) 50 mg DAILY 06/30/16 09:00 07/02/16 12:07 50 MG Dextrose 12.5 gm PRN Q15MIN PRN 06/29/16 14:30 Fentanyl Citrate (Fentanyl 5ml Vial) 250 mcg 1X ONCE 07/02/16 11:15 07/02/16 11:18 DC 07/02/16 11:15 50 MCG Flumazenil (Romazicon) 0.5 mg STK-MED ONCE 07/02/16 11:04 07/02/16 11:05 DC Gelatin (Gelfoam Size 12-7mm) 1 each STK-MED ONCE 07/02/16 11:13 07/02/16 11:14 DC Insulin Aspart (Novolog) 10 units TIDAC 06/30/16 07:30 07/02/16 12:08 10 UNITS Insulin Detemir (Levemir) 40 units QHS 06/29/16 21:00 07/01/16 22:49 40 UNITS Iohexol (Omnipaque 300 Mg/ml) 75 ml 1X ONCE 07/02/16 08:45 07/02/16 08:46 DC 07/02/16 08:49 75 ML Lidocaine/Sodium Bicarbonate (Buffered Lidocaine 1%) 20 ml 1X ONCE 07/02/16 11:15 07/02/16 11:18 DC Magnesium Sulfate/ Dextrose 50 ml @ 25 mls/hr PRN DAILY PRN 06/30/16 10:45 Midazolam HCl (Versed) 5 mg 1X ONCE 07/02/16 11:15 07/02/16 11:18 DC 07/02/16 11:15 1 MG Naloxone HCl (Narcan) 0.4 mg STK-MED ONCE 07/02/16 11:04 07/02/16 11:05 DC Ondansetron HCl (Zofran) 4 mg PRN Q4HRS PRN 06/29/16 14:30 Pantoprazole Sodium (Protonix) 40 mg DAILYAC 06/29/16 16:30 07/02/16 12:04 40 MG Sodium Chloride (Iv Sodium Chloride 0.9% 1000ml Bag) 1,000 ml @ 125 mls/hr Q8H 06/29/16 14:30 07/01/16 12:08 DC 07/01/16 10:15 125 MLS/HR Sodium Phosphate/ Dextrose 263.3333 ml @ 64.167 m... 1X ONCE 07/01/16 13:00 07/01/16 17:06 DC 07/01/16 12:35 64.167 MLS/HR Zolpidem Tartrate 5 mg 5 mg PRN QHS PRN 06/29/16 22:00 07/01/16 20:38 5 MG Lab Laboratory Tests Test 07/01/16 16:47 07/01/16 22:40 07/02/16 07:00 07/02/16 07:44 Glucose (Fingerstick) 284mg/dL (70-99) 326mg/dL (70-99) 186mg/dL (70-99) White Blood Count 15.3x10^3/uL (4.0-11.0) Red Blood Count 3.20x10^6/uL (4.30-5.70) Hemoglobin 8.3g/dL (13.0-17.5) Hematocrit 26.8% (39.0-53.0) Mean Corpuscular Volume 84fL (79-100) Mean Corpuscular Hemoglobin 26pg (25-35) Mean Corpuscular Hemoglobin Concent 31g/dL (31-37) Red Cell Distribution Width 14.3% (11.5-14.5) Platelet Count 288x10^3/uL (140-400) Neutrophils (%) (Auto) 86% (31-73) Lymphocytes (%) (Auto) 4% (24-48) Monocytes (%) (Auto) 9% (0-9) Eosinophils (%) (Auto) 1% (0-3) Basophils (%) (Auto) 0% (0-3) Neutrophils # (Auto) 13.2x10^3uL (1.8-7.7) Lymphocytes # (Auto) 0.7x10^3/uL (1.0-4.8) Monocytes # (Auto) 1.3x10^3/uL (0.0-1.1) Eosinophils # (Auto) 0.1x10^3/uL (0.0-0.7) Basophils # (Auto) 0.0x10^3/uL (0.0-0.2) Prothrombin Time 18.0SEC (11.7-14.0) Prothromb Time International Ratio 1.6 (0.8-1.1) Sodium Level 134mmol/L (136-145) Potassium Level 3.7mmol/L (3.5-5.1) Chloride Level 99mmol/L (98-107) Carbon Dioxide Level 26mmol/L (21-32) Anion Gap 9 (6-14) Blood Urea Nitrogen 13mg/dL (8-26) Creatinine 1.0mg/dL (0.7-1.3) Estimated GFR (Cockcroft-Gault) 77.0 Glucose Level 224mg/dL (70-99) Calcium Level 8.4mg/dL (8.5-10.1) Phosphorus Level 2.2mg/dL (2.6-4.7) Magnesium Level 2.0mg/dL (1.8-2.4) Albumin 1.7g/dL (3.4-5.0) Test 07/02/16 10:51 Glucose (Fingerstick) 162mg/dL (70-99) CASPER GARCIA MD Jul 02, 2016 13:33
[2016-07-02] MEDS ORDERED: SODIUM PHOSPHATE 40 MMOL in IV DEXTROSE 5% 250 ML IV ONE (14:00)
[2016-07-02] MEDS: ACETAMINOPHEN 325 MG TABLET. PO PRN (15:17)
--- NOTE | 2016-07-02 16:08 | RAD ---
CT of the chest with contrast, 07/02/2016: History: Metastatic malignancy of unclear origin Multidetector CT imaging was performed following an IV bolus injection of iodinated contrast material. The thoracic aorta is of normal caliber. Scattered coronary artery calcifications are present. The heart is of normal size. Several small mediastinal lymph nodes are seen without evidence of pathologic enlargement. No pleural fluid is present. There is minimal pleural thickening posteriorly in the left lower chest which may be due to scarring. There are a few scattered linear parenchymal opacities bilaterally compatible with scars and/or atelectasis. A calcified granuloma is present in the right lower lobe. No pulmonary mass or dense consolidation is seen. Left renal, left adrenal and hepatic lesions are again identified as described on the 06/29/2016 CT abdomen study. Moderate scattered degenerative changes are present in the spine. IMPRESSION: 1. No CT evidence of metastatic disease in the chest. 2. Coronary artery calcifications. 3. Mild bilateral linear parenchymal scarring and/or atelectasis.
[2016-07-02 16:18] LABS: ALPHA 1 0.6 g/dL (0.0-0.4); ALPHA 2 1.8 g/dL (0.4-1.0); BETA 1.3 g/dL (0.7-1.3); GAMMA 1.3 g/dL (0.4-1.8); M-SPIKE Not Observed g/dL (Not Observed); PROTEIN TOTAL 7.3 g/dL (6.0-8.5)
[2016-07-02] MEDS: ATORVASTATIN CALCIUM 10 MG TABLET. PO SCH (21:05)
[2016-07-02] MEDS: INSULIN DETEMIR 300 UNITS/3 ML INSULN.PEN. SQ SCH (21:06)
--- NOTE | 2016-07-03 00:12 | CONS ---
DATE OF CONSULTATION: 07/02/2016 REFERRING PROVIDER: Dr. Willams. REASON FOR CONSULTATION: Abdominal masses. HISTORY OF PRESENT ILLNESS: The patient is a 55-year-old morbidly obese male who presented to the hospital with a 6-8 week history of intermittent nausea, vomiting, diarrhea and abdominal pain. He has also lost 25 pounds unintentionally and had a decreased appetite. He initially presented with acute kidney insufficiency with creatinine of 1.7. This is now improved with a normal creatinine. Renal ultrasound was completed, which showed an 8 cm left renal mass. Chest x-ray was negative. He therefore went on to have a CT of the abdomen and pelvis which showed numerous right liver lesions, confirmed the left kidney mass measuring 7.5 cm and also showed a 4.8 cm mass originating either from the left adrenal gland or pancreas of unclear origin. He does still feel overall somewhat weak. He has never had a colonoscopy. 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 PAST SURGICAL HISTORY: Negative. FAMILY HISTORY: Multiple family members with diabetes including a maternal aunt who has had renal failure, on dialysis. His mom is still living with COPD. Dad from cancer, possibly lung, he was a heavy smoker. SOCIAL HISTORY: He lives alone. He denies any tobacco, alcohol or drug use. He did previously smoke for 10 years, but quit 15 years ago. ALLERGIES: No known drug allergies. CURRENT MEDICATIONS: Lortab, Lipitor, Casodex, Levemir, Zofran, Protonix, Ambien. REVIEW OF SYSTEMS: Twelve point review of systems completed and significant for the weight loss, fatigue, decreased appetite, intermittent nausea, vomiting, diarrhea and abdominal pain which currently are controlled. He also has chronic bilateral feet neuropathy. PHYSICAL EXAMINATION: VITAL SIGNS: Temperature 98.8, pulse 106, respiratory rate 20, blood pressure 107/62, 100% O2 on room air. GENERAL: He is alert and oriented in no apparent distress. He is morbidly obese. HEENT: Extraocular muscle strength is intact. Sclerae are without icterus. Mucous membranes are moist. CARDIOVASCULAR: Heart is tachycardic, but regular in rhythm. LUNGS: Clear to auscultation bilaterally. ABDOMEN: Soft and nontender with no obvious masses. It is difficult to assess for organomegaly given his obesity. EXTREMITIES: No edema. NEUROLOGIC: No focal cranial deficits. IMAGING/LABORATORY DATA: Pertinent renal ultrasound, chest x-ray and CT findings as below. His white blood cell count was initially 18.0 with an ANC 15.6, hemoglobin 10.4, now down to 8.3, platelets 342. His BMP has now normalized with a creatinine of 1.0, sodium 134. His albumin is only 1.6. TIBC 187. Serum iron 20, ferritin 1700, percent iron saturation 11, B12 1700. TSH is normal. Uric acid is 8.0. ASSESSMENT AND PLAN: The patient is a 55-year-old male with the following medical problems: 1. Renal mass and left adrenal/pancreatic mass, possibly representing a renal cell carcinoma. He also has liver lesions in the right liver lobe. I asked for an IR guided biopsy of either the liver or pancreatic mass, which should be performed later today. I am also adding on a formal CT of his chest for staging. He lives in [place], so I will set up followup in one of our Oncology Clinics there and have my office call his cell phone with this appointment, which will likely occur early next week. 2. Elevated uric acid. His renal function is now normal. This could be due to an underlying malignancy. I am starting him on allopurinol. 3. Anemia of chronic disease. His B12 and iron studies are actually high. This could be due to an underlying malignancy. I would not recommend starting erythropoietin, which can cause further progression of some malignancies, until we obtain his underlying diagnosis and treatment plan. 4. Bilateral feet neuropathy. Could impact his future treatment plan. 5. Prostate cancer status post radiation of temporary hormone deprivation. Casodex is listed on his medicine list though he did not mention it to me. I am not sure if this is an active medication or the exact status of his prostate cancer at this time. 6. Health maintenance. He has never had a colonoscopy. Consider as outpatient pending biopsy results. Thank you for this consultation and allowing us to participate in his care. I will contact our [place] office to establish further followup. From an oncology standpoint once his biopsy and CT are performed, likely later today, he can be discharged when deemed stable by his primary team. HELEN CASTAÑEDA DO DR: IZABELLA/christopher JOB#: [id number] / [id number] ISIDRO
[2016-07-03] MEDS: ACETAMINOPHEN 325 MG TABLET. PO PRN ×2 (01:31→20:53)
[2016-07-03 03:00] VITALS: BP 100/42
[2016-07-03 07:00] VITALS: BP 118/64
[2016-07-03 07:18] LABS: HEMATOCRIT 26.8 % (39.0-53.0); HEMOGLOBIN 8.3 g/dL (13.0-17.5); RED BLOOD COUNT 3.21 x10^6/uL (4.30-5.70); WHITE BLOOD COUNT 16.4 x10^3/uL (4.0-11.0)
[2016-07-03 07:37] LABS: ALBUMIN 1.6 g/dL (3.4-5.0); CALCIUM 8.5 mg/dL (8.5-10.1); CREATININE 1.2 mg/dL (0.7-1.3); GFR 62.4; PHOSPHORUS 2.9 mg/dL (2.6-4.7); POTASSIUM 3.4 mmol/L (3.5-5.1)
--- NOTE | 2016-07-03 08:48 | PDOC ---
Subjective: Subjective: Onc f/u- Abd masses, path pending Pt with no issues overnight. No SOB, chest pain, abd pain. Objective: Vital Signs: Vital Signs Date Time Temp Pulse Resp B/P Pulse Ox O2 Delivery O2 Flow Rate FiO2 07/03/16 03:00 100.0 112 20 100/42 95 Room Air 100.0 07/02/16 11:26 2.0 Physical Exam: Heart: Regular rate Extremities: No edema General: Alert, Oriented X3, Cooperative, No acute distress Lungs: Other (no resp distress) Psych/Mental Status: Mental status NL, Mood NL Labs/Imaging: CT chest- Neg Bx from liver- path pending Assessment/Plan A/P: 1. Renal mass and left adrenal/pancreatic mass, liver lesions in the right liver lobe. - CT chest neg - S/P liver bx yesterday - Will f/u in our onc clinic in [place] next week to review path and determine tx plan 2. Elevated uric acid, possibly due to underlying malignancy - Started allopurinol, would DC on this and can be stopped as outpt pending dx 3. Anemia of chronic disease- Stable. Do not start Epo please until dx and tx plan determined. 4. Bilateral foot neuropathy. Could impact his future treatment plan. 5. H/O Prostate cancer status post radiation/ 2 yr hormone deprivation - Pt not taking casodex as outpt; I therefore DC'ed this. No need ot DC on this med. 6. Health maintenance. He has never had a colonoscopy. Consider as outpatient pending biopsy results. Ok to DC from onc standpoint. HELEN CASTAÑEDA DO Jul 03, 2016 08:48
--- NOTE | 2016-07-03 08:49 | RAD ---
Procedure: CT-guided liver biopsy Clinical Indication: 55-year-old male with liver masses Sedation: Conscious sedation was administered for 25 minutes. The patient was monitored by a qualified independent observer throughout the time of sedation. Please refer to the medical record for exact doses of medications utilized to achieve moderate sedation. Antibiotics: None Contrast: None Sterility: The procedure was performed in its entirety using appropriate elements of sterile technique. Consent: The procedure was explained in its entirety to the patient or the patients designated telemarketing representative by a member of the treatment team, including a discussion of the risks, benefits and commonly accepted alternatives to the procedure, as well as the expected consequences of no therapy whatsoever. Discussion of the risks included, but was not limited to, those that are most frequent and those that are rare but possibly severe or life-threatening, as well as the possibility of unforeseen complications. Technique and Findings: Following informed consent, the patient was prepped and draped in usual sterile fashion. 1% lidocaine was used to achieve local anesthesia over the area of interest. A small dermatotomy was made. Under periodic CT surveillance, a 17-gauge needle guide was advanced towards a dominant lesion within the right lobe of the liver. 5 x 18-gauge core biopsy specimens were then obtained and preserved in formalin. Gelfoam pledgets were applied as the needle guide was removed and hemostasis was achieved with manual compression. Complications: No immediate Impression: 1. CT-guided liver biopsy as described
--- NOTE | 2016-07-03 09:08 | PDOC ---
SUBJECTIVE Subjective feels better, stable, no new complaints OBJECTIVE Objective still febrile with low Bp , will ask ID to see ? tumor fever, Bx is pending Vital Signs Vital Signs Date Time Temp Pulse Resp B/P Pulse Ox O2 Delivery O2 Flow Rate FiO2 07/03/16 03:00 100.0 112 20 100/42 95 Room Air 100.0 07/02/16 23:02 102.0 94 20 134/61 98 Room Air 102.0 07/02/16 20:00 Room Air 07/02/16 19:00 99.4 118 20 107/63 99 Room Air 99.4 07/02/16 14:45 100.1 100 20 115/63 98 Room Air 100.1 07/02/16 13:45 99.9 120 21 146/71 98 Room Air 99.9 07/02/16 13:15 97.7 121 20 138/67 98 Room Air 97.7 07/02/16 12:45 97.7 125 20 142/64 97 Room Air 97.7 07/02/16 12:30 97.7 112 19 127/69 98 Room Air 97.7 07/02/16 12:19 Room Air 07/02/16 12:18 116 132/75 07/02/16 12:01 111 120/74 99 07/02/16 11:30 111 16 98 07/02/16 11:26 111 17 99 Nasal Cannula 2.0 07/02/16 11:20 89 17 98 Nasal Cannula 2.0 07/02/16 11:15 69 16 99 07/02/16 11:15 16 97 Room Air 07/02/16 11:00 99.1 100 18 115/63 98 Room Air 99.1 I & O Intake and Output 07/03/16 07:00 Intake Total 890 ml Output Total 1600 ml Balance -710 ml Intake Oral 890 ml Output Urine Total 1600 ml # Voids 1 PHYSICAL EXAM Physical Exam lungs clear abdo soft and nonetender ext no edema heart mild tachycardia ASSESSMENT/PLAN Assessment/Plan 1- left renal mass and adrenal mass with liver lesions, needle bx pending 2-fever ? tumor will ask ID opinion 3-gatroenteritis symptoms resolved 4-acute on chronic renal failure better 5-DM type II 6- Neuropathy 7- hx prostate CA Problems: COMMENT Lab Laboratory Tests Test 07/02/16 10:51 07/02/16 15:52 07/02/16 20:38 07/03/16 06:46 Glucose (Fingerstick) 162mg/dL (70-99) 178mg/dL (70-99) 227mg/dL (70-99) White Blood Count 16.4x10^3/uL (4.0-11.0) Red Blood Count 3.21x10^6/uL (4.30-5.70) Hemoglobin 8.3g/dL (13.0-17.5) Hematocrit 26.8% (39.0-53.0) Mean Corpuscular Volume 84fL (79-100) Mean Corpuscular Hemoglobin 26pg (25-35) Mean Corpuscular Hemoglobin Concent 31g/dL (31-37) Red Cell Distribution Width 15.0% (11.5-14.5) Platelet Count 310x10^3/uL (140-400) Sodium Level 134mmol/L (136-145) Potassium Level 3.4mmol/L (3.5-5.1) Chloride Level 98mmol/L (98-107) Carbon Dioxide Level 27mmol/L (21-32) Anion Gap 9 (6-14) Blood Urea Nitrogen 11mg/dL (8-26) Creatinine 1.2mg/dL (0.7-1.3) Estimated GFR (Cockcroft-Gault) 62.4 Glucose Level 189mg/dL (70-99) Calcium Level 8.5mg/dL (8.5-10.1) Phosphorus Level 2.9mg/dL (2.6-4.7) Albumin 1.6g/dL (3.4-5.0) Test 07/03/16 07:35 Glucose (Fingerstick) 157mg/dL (70-99) GEE SALGADO MD Jul 03, 2016 09:08
[2016-07-03] MEDS ORDERED: POTASSIUM CHLORIDE 20 MEQ TABLET.ER. PO ONE ×2 (09:15→14:00)
[2016-07-03] MEDS: ALLOPURINOL 300 MG TABLET. PO SCH (09:28)
[2016-07-03] MEDS: PANTOPRAZOLE 40 MG TABLET. PO SCH (09:28)
--- NOTE | 2016-07-03 09:32 | PDOC ---
SUBJECTIVE ROS Renal Mass/ elytes Doing OK overall OBJECTIVE Vital Signs Vital Signs Date Time Temp Pulse Resp B/P Pulse Ox O2 Delivery O2 Flow Rate FiO2 07/03/16 07:00 98.1 104 20 118/64 97 Room Air 98.1 07/02/16 11:26 2.0 I & 0 Intake and Output 07/03/16 07:00 Intake Total 890 ml Output Total 1600 ml Balance -710 ml Intake Oral 890 ml Output Urine Total 1600 ml # Voids 1 PHYSICAL EXAM Physical Exam General Appearance: Drowsy from recent Liver Bx Neck: No JVD or JVP Chest: CTA Aman Heart: S1 S2 Abdomen - Soft NTND Extremities - No Edema DIAGNOSIS/ASSESSMENT Assessment & Plan Renal Mass in the setting of Possible metastatic dz to the lIver - await bx results. low K - supplement as ordered COMMENT/RELEVANT DATA Meds Current Medications Medications (Trade) Dose Ordered Sig/Adilia Start Time Stop Time Status Last Admin Dose Admin Acetaminophen (Tylenol) 650 mg PRN Q6HRS PRN 07/02/16 15:00 07/03/16 01:31 650 MG Acetaminophen/ Hydrocodone Bitart (Lortab 7.5/325) 1 tab PRN Q4HRS PRN 06/29/16 22:00 07/01/16 20:38 1 TAB Allopurinol (Zyloprim) 300 mg DAILY 07/02/16 09:30 07/02/16 12:04 300 MG Atorvastatin Calcium (Lipitor) 10 mg QHS 06/29/16 21:00 07/02/16 21:05 10 MG Bicalutamide (Casodex) 50 mg DAILY 06/30/16 09:00 07/03/16 08:44 DC 07/02/16 12:07 50 MG Dextrose 12.5 gm PRN Q15MIN PRN 06/29/16 14:30 Fentanyl Citrate (Fentanyl 5ml Vial) 250 mcg 1X ONCE 07/02/16 11:15 07/02/16 11:18 DC 07/02/16 11:15 50 MCG Flumazenil (Romazicon) 0.5 mg STK-MED ONCE 07/02/16 11:04 07/02/16 11:05 DC Gelatin 1 each 1 each STK-MED ONCE 07/02/16 11:13 07/02/16 11:14 DC Insulin Aspart (Novolog) 10 units TIDAC 06/30/16 07:30 07/02/16 17:25 10 UNITS Insulin Detemir (Levemir) 40 units QHS 06/29/16 21:00 07/02/16 21:06 40 UNITS Iohexol (Omnipaque 300 Mg/ml) 75 ml 1X ONCE 07/02/16 08:45 07/02/16 08:46 DC 07/02/16 08:49 75 ML Lidocaine/Sodium Bicarbonate (Buffered Lidocaine 1%) 20 ml 1X ONCE 07/02/16 11:15 07/02/16 11:18 DC Magnesium Sulfate/ Dextrose (Magnesium Sulfate PREMIX 2GM) 50 ml @ 25 mls/hr PRN DAILY PRN 06/30/16 10:45 Midazolam HCl (Versed) 5 mg 1X ONCE 07/02/16 11:15 07/02/16 11:18 DC 07/02/16 11:15 1 MG Naloxone HCl (Narcan) 0.4 mg STK-MED ONCE 07/02/16 11:04 07/02/16 11:05 DC Ondansetron HCl (Zofran) 4 mg PRN Q4HRS PRN 06/29/16 14:30 Pantoprazole Sodium (Protonix) 40 mg DAILYAC 06/29/16 16:30 07/02/16 12:04 40 MG Potassium Chloride (Klor-Con) 40 meq 1X ONCE 07/03/16 09:15 07/03/16 09:16 DC Sodium Chloride (Iv Sodium Chloride 0.9% 1000ml Bag) 1,000 ml @ 125 mls/hr Q8H 06/29/16 14:30 07/01/16 12:08 DC 07/01/16 10:15 125 MLS/HR Sodium Phosphate/ Dextrose 263.3333 ml @ 64.167 m... 1X ONCE 07/02/16 14:00 07/02/16 18:06 DC 07/02/16 15:17 64.167 MLS/HR Zolpidem Tartrate 5 mg 5 mg PRN QHS PRN 06/29/16 22:00 07/01/16 20:38 5 MG Lab Laboratory Tests Test 07/02/16 10:51 07/02/16 15:52 07/02/16 20:38 07/03/16 06:46 Glucose (Fingerstick) 162mg/dL (70-99) 178mg/dL (70-99) 227mg/dL (70-99) White Blood Count 16.4x10^3/uL (4.0-11.0) Red Blood Count 3.21x10^6/uL (4.30-5.70) Hemoglobin 8.3g/dL (13.0-17.5) Hematocrit 26.8% (39.0-53.0) Mean Corpuscular Volume 84fL (79-100) Mean Corpuscular Hemoglobin 26pg (25-35) Mean Corpuscular Hemoglobin Concent 31g/dL (31-37) Red Cell Distribution Width 15.0% (11.5-14.5) Platelet Count 310x10^3/uL (140-400) Sodium Level 134mmol/L (136-145) Potassium Level 3.4mmol/L (3.5-5.1) Chloride Level 98mmol/L (98-107) Carbon Dioxide Level 27mmol/L (21-32) Anion Gap 9 (6-14) Blood Urea Nitrogen 11mg/dL (8-26) Creatinine 1.2mg/dL (0.7-1.3) Estimated GFR (Cockcroft-Gault) 62.4 Glucose Level 189mg/dL (70-99) Calcium Level 8.5mg/dL (8.5-10.1) Phosphorus Level 2.9mg/dL (2.6-4.7) Albumin 1.6g/dL (3.4-5.0) Test 07/03/16 07:35 Glucose (Fingerstick) 157mg/dL (70-99) CASPER GARCIA MD Jul 03, 2016 09:32
[2016-07-03] MEDS: INSULIN ASPART 300 UNITS/3 ML INSULN.PEN SQ SCH ×6 (09:35→18:01)
[2016-07-03 11:26] VITALS: BP 129/69
--- NOTE | 2016-07-03 13:31 | PDOC ---
Infectious Disease Note ROS ROS GEN: Denies fevers, chills, sweats HEENT: Denies blurred vision, sore throat CV: Denies chest pain RESP: Denies shortness of air, cough GI: Denies n/v/d NEURO: Denies confusion, dizziness MSK: Denies weakness, joint pain/swelling Vital Sign Vital Signs Vital Signs Date Time Temp Pulse Resp B/P Pulse Ox O2 Delivery O2 Flow Rate FiO2 07/03/16 11:26 99.6 113 18 129/69 98 Room Air 99.6 07/02/16 11:26 2.0 Physical Exam PHYSICAL EXAM GENERAL: NAD, Alert HEENT: PERRL, OC/OP NECK: Supple, no JVD, no LN LUNGS: Clear HEART: S1S2, no gallop, no murmur ABD: Soft, NT, no organomegaly, no rebound EXT: No edema, no cyanosis GARMENT LINER: Alert, 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, no focal neurologic deficit SKIN: No rash IV: ok Labs Lab Laboratory Tests Test 07/02/16 15:52 07/02/16 20:38 07/03/16 06:46 07/03/16 07:35 Glucose (Fingerstick) 178mg/dL (70-99) 227mg/dL (70-99) 157mg/dL (70-99) White Blood Count 16.4x10^3/uL (4.0-11.0) Red Blood Count 3.21x10^6/uL (4.30-5.70) Hemoglobin 8.3g/dL (13.0-17.5) Hematocrit 26.8% (39.0-53.0) Mean Corpuscular Volume 84fL (79-100) Mean Corpuscular Hemoglobin 26pg (25-35) Mean Corpuscular Hemoglobin Concent 31g/dL (31-37) Red Cell Distribution Width 15.0% (11.5-14.5) Platelet Count 310x10^3/uL (140-400) Sodium Level 134mmol/L (136-145) Potassium Level 3.4mmol/L (3.5-5.1) Chloride Level 98mmol/L (98-107) Carbon Dioxide Level 27mmol/L (21-32) Anion Gap 9 (6-14) Blood Urea Nitrogen 11mg/dL (8-26) Creatinine 1.2mg/dL (0.7-1.3) Estimated GFR (Cockcroft-Gault) 62.4 Glucose Level 189mg/dL (70-99) Calcium Level 8.5mg/dL (8.5-10.1) Phosphorus Level 2.9mg/dL (2.6-4.7) Magnesium Level 1.9mg/dL (1.8-2.4) Albumin 1.6g/dL (3.4-5.0) Test 07/03/16 11:37 Glucose (Fingerstick) 214mg/dL (70-99) Objective Assessment Fever - ? tumor vs post procedure Leukocytosis - reactive ? Metastatic disease s/p biopsy renal 07/02 DM Plan Plan of Care Dose Augmentin - clinically looks well F/u WBC/temp Await biopsy Thank you D/w family # [id number] ANA WESTON MD Jul 03, 2016 13:31
[2016-07-03] MEDS: AMOXICILLIN/K CLAV 875/125MG TABLET. PO SCH ×2 (13:45→20:52)
[2016-07-03 15:00] VITALS: BP 119/74
[2016-07-03 19:00] VITALS: BP 114/57
[2016-07-03] MEDS: ATORVASTATIN CALCIUM 10 MG TABLET. PO SCH (20:52)
[2016-07-03] MEDS: INSULIN DETEMIR 300 UNITS/3 ML INSULN.PEN. SQ SCH (21:01)
[2016-07-03 23:00] VITALS: BP 112/52
[2016-07-04 03:00] VITALS: BP 108/56
[2016-07-04 04:20] LABS: HEMATOCRIT 27.1 % (39.0-53.0); HEMOGLOBIN 8.5 g/dL (13.0-17.5); RED BLOOD COUNT 3.25 x10^6/uL (4.30-5.70); RED CELL DISTRIBUTION WIDTH 14.7 % (11.5-14.5); WHITE BLOOD COUNT 14.4 x10^3/uL (4.0-11.0)
[2016-07-04 04:39] LABS: ALBUMIN 1.5 g/dL (3.4-5.0); CALCIUM 8.5 mg/dL (8.5-10.1); CREATININE 1.1 mg/dL (0.7-1.3); PHOSPHORUS 2.1 mg/dL (2.6-4.7); POTASSIUM 3.9 mmol/L (3.5-5.1)
[2016-07-04 07:00] VITALS: BP 117/66
[2016-07-04] MEDS: INSULIN ASPART 300 UNITS/3 ML INSULN.PEN SQ SCH ×6 (07:30→17:15)
--- NOTE | 2016-07-04 09:43 | PDOC ---
SUBJECTIVE Subjective feels better, temp seems down OBJECTIVE Vital Signs Vital Signs Date Time Temp Pulse Resp B/P Pulse Ox O2 Delivery O2 Flow Rate FiO2 07/04/16 03:00 97.7 103 22 108/56 99 Room Air 97.7 07/03/16 23:00 97.5 105 22 112/52 96 Room Air 97.5 07/03/16 20:52 100.8 100.8 07/03/16 20:00 Room Air 07/03/16 19:00 101.7 117 22 114/57 97 Room Air 101.7 07/03/16 15:00 98.0 122 18 119/74 99 Room Air 98.0 07/03/16 11:26 99.6 113 18 129/69 98 Room Air 99.6 I & O Intake and Output 07/04/16 07:00 Intake Total 3550 ml Output Total 1650 ml Balance 1900 ml Intake Oral 3550 ml Output Urine Total 1650 ml PHYSICAL EXAM Physical Exam lungs clear heart RRR abd soft ext no edema ASSESSMENT/PLAN Assessment/Plan 1- left renal mass and adrenal mass with liver lesions, needle bx pending 2-fever seems trending down continue to monitor 3-gatroenteritis symptoms resolved 4-acute on chronic renal failure better 5-DM type II 6- Neuropathy 7- hx prostate CA Problems: COMMENT Lab Laboratory Tests Test 07/03/16 11:37 07/03/16 16:47 07/03/16 20:56 07/04/16 03:42 Glucose (Fingerstick) 214mg/dL (70-99) 201mg/dL (70-99) 183mg/dL (70-99) White Blood Count 14.4x10^3/uL (4.0-11.0) Red Blood Count 3.25x10^6/uL (4.30-5.70) Hemoglobin 8.5g/dL (13.0-17.5) Hematocrit 27.1% (39.0-53.0) Mean Corpuscular Volume 84fL (79-100) Mean Corpuscular Hemoglobin 26pg (25-35) Mean Corpuscular Hemoglobin Concent 31g/dL (31-37) Red Cell Distribution Width 14.7% (11.5-14.5) Platelet Count 294x10^3/uL (140-400) Sodium Level 133mmol/L (136-145) Potassium Level 3.9mmol/L (3.5-5.1) Chloride Level 99mmol/L (98-107) Carbon Dioxide Level 25mmol/L (21-32) Anion Gap 9 (6-14) Blood Urea Nitrogen 14mg/dL (8-26) Creatinine 1.1mg/dL (0.7-1.3) Estimated GFR (Cockcroft-Gault) 69.0 Glucose Level 200mg/dL (70-99) Calcium Level 8.5mg/dL (8.5-10.1) Phosphorus Level 2.1mg/dL (2.6-4.7) Magnesium Level 2.0mg/dL (1.8-2.4) Albumin 1.5g/dL (3.4-5.0) Test 07/04/16 08:18 Glucose (Fingerstick) 137mg/dL (70-99) GEE SALGADO MD Jul 04, 2016 09:43
--- NOTE | 2016-07-04 10:45 | PDOC ---
Infectious Disease Note Subjective Subjective Better. No pain/Fever and less sweat ROS ROS GEN: Denies fevers, chills HEENT: Denies blurred vision, sore throat CV: Denies chest pain RESP: Denies shortness of air, cough GI: Denies n/v/d NEURO: Denies confusion, dizziness MSK: Denies weakness, joint pain/swelling Vital Sign Vital Signs Vital Signs Date Time Temp Pulse Resp B/P Pulse Ox O2 Delivery O2 Flow Rate FiO2 07/04/16 07:00 99.1 111 14 117/66 97 Room Air 99.1 Physical Exam PHYSICAL EXAM GENERAL: NAD, Alert- in chair HEENT: PERRL, OC/OP- clear NECK: Supple, no JVD, no LN LUNGS: Clear HEART: S1S2, no gallop, no murmur ABD: Soft, NT, no organomegaly, no rebound, obese EXT: No edema, no cyanosis 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, 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, no focal neurologic deficit SKIN: No rash IV: ok Labs Lab Laboratory Tests Test 07/03/16 11:37 07/03/16 16:47 07/03/16 20:56 07/04/16 03:42 Glucose (Fingerstick) 214mg/dL (70-99) 201mg/dL (70-99) 183mg/dL (70-99) White Blood Count 14.4x10^3/uL (4.0-11.0) Red Blood Count 3.25x10^6/uL (4.30-5.70) Hemoglobin 8.5g/dL (13.0-17.5) Hematocrit 27.1% (39.0-53.0) Mean Corpuscular Volume 84fL (79-100) Mean Corpuscular Hemoglobin 26pg (25-35) Mean Corpuscular Hemoglobin Concent 31g/dL (31-37) Red Cell Distribution Width 14.7% (11.5-14.5) Platelet Count 294x10^3/uL (140-400) Sodium Level 133mmol/L (136-145) Potassium Level 3.9mmol/L (3.5-5.1) Chloride Level 99mmol/L (98-107) Carbon Dioxide Level 25mmol/L (21-32) Anion Gap 9 (6-14) Blood Urea Nitrogen 14mg/dL (8-26) Creatinine 1.1mg/dL (0.7-1.3) Estimated GFR (Cockcroft-Gault) 69.0 Glucose Level 200mg/dL (70-99) Calcium Level 8.5mg/dL (8.5-10.1) Phosphorus Level 2.1mg/dL (2.6-4.7) Magnesium Level 2.0mg/dL (1.8-2.4) Albumin 1.5g/dL (3.4-5.0) Test 07/04/16 08:18 Glucose (Fingerstick) 137mg/dL (70-99) Objective Assessment Fever - ? tumor vs post procedure Leukocytosis - reactive - better ? Metastatic disease s/p biopsy renal 07/02 DM Plan Plan of Care Cont Augmentin - clinically looks well F/u WBC/temp Await biopsy D/w family ANA WESTON MD Jul 04, 2016 10:44
[2016-07-04] MEDS: PANTOPRAZOLE 40 MG TABLET. PO SCH (10:46)
[2016-07-04] MEDS: AMOXICILLIN/K CLAV 875/125MG TABLET. PO SCH ×2 (10:47→20:23)
[2016-07-04] MEDS: ALLOPURINOL 300 MG TABLET. PO SCH (10:47)
[2016-07-04 11:40] VITALS: BP 116/61
[2016-07-04] MEDS: HYDROCODONE/APAP 7.5/325MG TABLET. PO PRN ×2 (13:17→20:24)
--- NOTE | 2016-07-04 14:11 | PDOC ---
SUBJECTIVE ROS F/up VICKY - resolved Renal Mass Doing OK overall OBJECTIVE Vital Signs Vital Signs Date Time Temp Pulse Resp B/P Pulse Ox O2 Delivery O2 Flow Rate FiO2 07/04/16 13:17 20 98 Room Air 07/04/16 11:40 98.6 115 116/61 98.6 I & 0 Intake and Output 07/04/16 07:00 Intake Total 3550 ml Output Total 1650 ml Balance 1900 ml Intake Oral 3550 ml Output Urine Total 1650 ml PHYSICAL EXAM Physical Exam General Appearance: Drowsy from recent Liver Bx Neck: No JVD or JVP Chest: CTA Aman Heart: S1 S2 Abdomen - Soft NTND Extremities - No Edema DIAGNOSIS/ASSESSMENT Assessment & Plan Renal Mass in the setting of Possible metastatic dz to the lIver - await bx results. Febrile illness - ID evaluating - ? Asso with Malignancy/ Renal Mass if no other etio found COMMENT/RELEVANT DATA Meds Current Medications Medications (Trade) Dose Ordered Sig/Adilia Start Time Stop Time Status Last Admin Dose Admin Acetaminophen (Tylenol) 650 mg PRN Q6HRS PRN 07/02/16 15:00 07/03/16 20:53 650 MG Acetaminophen/ Hydrocodone Bitart (Lortab 7.5/325) 1 tab PRN Q4HRS PRN 06/29/16 22:00 07/04/16 13:17 1 TAB Allopurinol (Zyloprim) 300 mg DAILY 07/02/16 09:30 07/04/16 10:47 300 MG Amoxicillin/ Clavulanate Potassium (Augmentin 875/ 125mg) 1 tab BID 07/03/16 13:15 07/04/16 10:47 1 TAB Atorvastatin Calcium (Lipitor) 10 mg QHS 06/29/16 21:00 07/03/16 20:52 10 MG Bicalutamide (Casodex) 50 mg DAILY 06/30/16 09:00 07/03/16 08:44 DC 07/02/16 12:07 50 MG Dextrose 12.5 gm PRN Q15MIN PRN 06/29/16 14:30 Fentanyl Citrate (Fentanyl 5ml Vial) 250 mcg 1X ONCE 07/02/16 11:15 07/02/16 11:18 DC 07/02/16 11:15 50 MCG Flumazenil (Romazicon) 0.5 mg STK-MED ONCE 07/02/16 11:04 07/02/16 11:05 DC Gelatin 1 each 1 each STK-MED ONCE 07/02/16 11:13 07/02/16 11:14 DC Insulin Aspart (Novolog) 10 units TIDAC 06/30/16 07:30 07/04/16 12:41 10 UNITS Insulin Detemir (Levemir) 40 units QHS 06/29/16 21:00 07/03/16 21:01 40 UNITS Iohexol (Omnipaque 300 Mg/ml) 75 ml 1X ONCE 07/02/16 08:45 07/02/16 08:46 DC 07/02/16 08:49 75 ML Lidocaine/Sodium Bicarbonate (Buffered Lidocaine 1%) 20 ml 1X ONCE 07/02/16 11:15 07/02/16 11:18 DC Magnesium Sulfate/ Dextrose (Magnesium Sulfate PREMIX 2GM) 50 ml @ 25 mls/hr PRN DAILY PRN 06/30/16 10:45 Midazolam HCl (Versed) 5 mg 1X ONCE 07/02/16 11:15 07/02/16 11:18 DC 07/02/16 11:15 1 MG Naloxone HCl (Narcan) 0.4 mg STK-MED ONCE 07/02/16 11:04 07/02/16 11:05 DC Ondansetron HCl (Zofran) 4 mg PRN Q4HRS PRN 06/29/16 14:30 Pantoprazole Sodium (Protonix) 40 mg DAILYAC 06/29/16 16:30 07/04/16 10:46 40 MG Potassium Chloride (Klor-Con) 40 meq 1X ONCE 07/03/16 14:00 07/03/16 14:01 DC 07/03/16 13:22 40 MEQ Sodium Chloride (Iv Sodium Chloride 0.9% 1000ml Bag) 1,000 ml @ 125 mls/hr Q8H 06/29/16 14:30 07/01/16 12:08 DC 07/01/16 10:15 125 MLS/HR Sodium Phosphate/ Dextrose 263.3333 ml @ 64.167 m... 1X ONCE 07/02/16 14:00 07/02/16 18:06 DC 07/02/16 15:17 64.167 MLS/HR Zolpidem Tartrate 5 mg 5 mg PRN QHS PRN 06/29/16 22:00 07/01/16 20:38 5 MG Lab Laboratory Tests Test 07/03/16 16:47 07/03/16 20:56 07/04/16 03:42 07/04/16 08:18 Glucose (Fingerstick) 201mg/dL (70-99) 183mg/dL (70-99) 137mg/dL (70-99) White Blood Count 14.4x10^3/uL (4.0-11.0) Red Blood Count 3.25x10^6/uL (4.30-5.70) Hemoglobin 8.5g/dL (13.0-17.5) Hematocrit 27.1% (39.0-53.0) Mean Corpuscular Volume 84fL (79-100) Mean Corpuscular Hemoglobin 26pg (25-35) Mean Corpuscular Hemoglobin Concent 31g/dL (31-37) Red Cell Distribution Width 14.7% (11.5-14.5) Platelet Count 294x10^3/uL (140-400) Sodium Level 133mmol/L (136-145) Potassium Level 3.9mmol/L (3.5-5.1) Chloride Level 99mmol/L (98-107) Carbon Dioxide Level 25mmol/L (21-32) Anion Gap 9 (6-14) Blood Urea Nitrogen 14mg/dL (8-26) Creatinine 1.1mg/dL (0.7-1.3) Estimated GFR (Cockcroft-Gault) 69.0 Glucose Level 200mg/dL (70-99) Calcium Level 8.5mg/dL (8.5-10.1) Phosphorus Level 2.1mg/dL (2.6-4.7) Magnesium Level 2.0mg/dL (1.8-2.4) Albumin 1.5g/dL (3.4-5.0) Test 07/04/16 11:00 Glucose (Fingerstick) 192mg/dL (70-99) CASPER GARCIA MD Jul 04, 2016 14:11
--- NOTE | 2016-07-04 15:01 | PATHOLOGY ---
PATHOLOGY REPORT * * * * * * * * FINAL DIAGNOSIS: Liver tissue, needle biopsies: - METASTATIC POORLY DIFFERENTIATED ADENOCARCINOMA. SEE COMMENT. COMMENT: Sections of the liver needle biopsy reveal segments of liver tissue showing foci of replacement by a malignant epithelial neoplasm. The malignant cells are present in irregular solid nests and show focal gland formation. The malignant cells have modest amounts of pale eosinophilic cytoplasm, and possess enlarged, rounded to ovoid hyperchromatic nuclei containing prominent nucleoli. There is moderate to focal marked nuclear pleomorphism. Mitotic figures are present. The remaining liver parenchyma shows somewhat prominent portal and focal lobular acute and chronic inflammation. A panel of immunoperoxidase stains is obtained and yields the following results: Cytokeratin 7: tumor cells positive Cytokeratin 20: tumor cells negative CDX-2: tumor cells negative CK19: tumor cells positive TTF-1: tumor cells negative CD10: tumor cells positive Vimentin: tumor cells positive Inhibin: tumor cells negative The morphologic and immunophenotypic findings are supportive of the diagnosis of a metastatic poorly differentiated adenocarcinoma. Possible primary sites include kidney and pancreaticobiliary tract. The case is also examined by Dr. Hicks, who concurs with the diagnosis. (JPM:; d/t: 07/03/16) Special stains performed: immunoperoxidase stain for CK7, CK20, CK19, CDX2, TTF1, inhibin, CD10, vimentin REPORT ELECTRONICALLY SIGNED BY: Daniel Flynn M.D. DATE/TIME: 07/04/2016 15:01 * * * * * * * * GROSS PATHOLOGY: Received in formalin labeled "Dora Pino, liver biopsy," are five distinct needle cores of white-nolasco to orange-nolasco soft tissue ranging from 1.5 to 2.0 cm in length, which are submitted entirely in cassette A1. (CAA; 07/02/2016) INITIAL CPT CODE(S): A; 96236, 05740, 78463, 12602, 63641, 26775, 51185, 85520, 19635 Professional services performed by [facility] at [address] [address] Technical services performed by [facility] at [address] [place] [address], [address], [place] [address]. SPECIMEN(S) RECEIVED: A.Liver, needle biopsy CLINICAL HISTORY: Liver mass, left renal mass, left adrenal mass, pancreas mass PATIENT: DORA PINO DOB/AGE: 6 1960 (Age: 55) PATIENT #: [id number] ALT CASE #: SPECIMEN COLLECTION DATE: 07/02/2016 SPECIMEN RECEIVED DATE: 07/02/2016 [facility] - [address] [place] [address] - PHONE: [phone] * * * END OF REPORT * * *
--- NOTE | 2016-07-04 15:10 | CONS ---
DATE OF CONSULTATION: 07/03/2016 ROOM: 536. REQUESTING PHYSICIAN: Mukund Pulido MD REASON FOR CONSULTATION: Fever, questionable tumor ____. HISTORY OF PRESENT ILLNESS: The patient is a pleasant 55-year-old gentleman with history of diabetes for approximately 12 years. He also has a distant history of prostate cancer status post 43 treatments of radiation therapy followed by hormone shots. For the past couple of months or so, he and his family reported that he has been somewhat fatigued also reports that he has been using the fan at night as he had been feeling hot. He denies any gross fevers, chills or sweats, but about a week or so ago, had some nausea, vomiting, but he denies diarrhea. I was also concerned that he may have had a pneumonia and was given a Z-Branden. He presented to Dr. Pulido's office after not feeling as well. His potassium was noted to be elevated as well as his creatinine and he was admitted with acute renal failure secondary to dehydration. Creatinine was 1.7 on arrival. Glucose was 335. He underwent an ultrasound, report showed a solid appearing mass in the left kidney, eventually underwent a CT scan of abdomen and pelvis, showed a 7.5 cm solid mass in the left pole of kidney, also a 4.8 poorly differentiated mass involving the left adrenal gland and the body of the pancreas. Since his admission, he has had periodic low grade temperatures as high as 99.9. He did have his biopsy performed yesterday and then yesterday evening had a temperature as high as 102. Currently, the patient is sitting in a chair. Denies any active fevers, chills or sweats. He has no gross headaches, no cough. The biopsy sites without signs of complications. Denies any dysuria, frequency, or urgency. He has a decreased appetite. No falls or trauma. PAST MEDICAL HISTORY: Positive for the above-mentioned diabetes, prostate cancer, hypertension, and hyperlipidemia. REVIEW OF SYSTEMS: Otherwise negative except for mentioned above. ALLERGIES: There are no known drug allergies. SOCIAL HISTORY: He is . is currently with him as well as son, quit smoking 15 years ago. FAMILY HISTORY: Positive for diabetes, renal failure, COPD, and lung cancer. CURRENT MEDICATIONS: Include allopurinol, Tylenol, insulin, potassium, and Ambien. Other meds are available and reviewed in the chart. PHYSICAL EXAMINATION: VITAL SIGNS: T-max 102, currently 99.6 oral, pulse 113, respirations 18, blood pressure 129/69, and satting 98% on room air. CONSTITUTIONAL: He is pleasant. He is cooperative. He is in no acute distress. He does not look particularly ill. HEENT: Pupils are equal and reactive. Normal conjunctivae. Oral cavity, pharynx is clear. NECK: Supple, no JVD. LUNGS: Clear to auscultation bilaterally. HEART: S1, S2. ABDOMEN: Obese, soft, nontender, and nondistended with positive bowel sounds. Biopsy site without signs of complications. No guarding or rebound. EXTREMITIES: No clubbing, cyanosis or gross edema. SKIN: Without generalized signs of rash. NEUROLOGIC: He is warm. He is appropriate. Affect is appropriate. LABORATORY DATA: White count 16.4, hemoglobin 8.3, platelets of 310, most recent creatinine of 1.2, glucose 214, albumin 1.6. Urinalysis, not consistent with urinary tract infection. No cultures. Radiology reviewed in history of present illness. IMPRESSION: 1. Fever, questionable tumor versus post-procedure. 2. Leukocytosis, reactive. 3. Questionable metastatic disease, status post biopsy of the renal area on 07/02/2016. 4. Diabetes. RECOMMENDATIONS: Clinically, he does look well, but ____ Augmentin and follow up on white blood cells as well as temperature and await biopsy results as discussed with family. Thank you for allowing us to participate in this patient's care. Should you have any questions, please do not hesitate to contact me. ANA WESTON MD DR: PRIMITIVO/christopher JOB#: [id number] / [id number]
[2016-07-04 15:12] VITALS: BP 117/65
[2016-07-04 15:28] LABS: KAPPA LAMBDA RATIO 0.96 (0.26-1.65)
--- NOTE | 2016-07-04 17:09 | PDOC ---
Subjective: Subjective: Onc f/u- Adenocarcinoma Pt's path returned- poorly diff adeno. No SOB, CP, abd pain. Wants to go home- feels overwhelmed. Onc consult Mon scheduled in [facility]. Objective: Vital Signs: Vital Signs Date Time Temp Pulse Resp B/P Pulse Ox O2 Delivery O2 Flow Rate FiO2 07/04/16 15:12 98.6 113 16 117/65 96 Room Air 98.6 Physical Exam: Heart: Regular rate Extremities: No edema General: Alert, Oriented X3, No acute distress Lungs: Normal air movement Psych/Mental Status: Mental status NL, Mood NL Labs/Imaging: Liver path- poorly diff adeno, kidney vs pancreaticobiliary origin Assessment/Plan A/P: 1. 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 - CT chest neg - Will order CEA, CA 19-9 - Discussing with GI if EGD/ colonoscopy can be done tomorrow, otherwise needs as outpt. - Discussed that renal cancer typically has different histology. - Outpt onc appt scheduled Mon 07/09 at 1:30 at our [facility] office closer to where pt lives. 2. Elevated uric acid, likely due to underlying malignancy - Started allopurinol, would DC on this and can be stopped as outpt pending dx 3. Anemia of chronic disease- Stable. Do not start Epo please until dx and tx plan determined. 4. Bilateral foot neuropathy. Could impact his future treatment plan. 5. H/O Prostate cancer status post radiation/ 2 yr hormone deprivation - Pt not taking casodex as outpt; I therefore DC'ed this. No need ot DC on this med. 6. Health maintenance. He has never had a colonoscopy. Needs in near future as above. HELEN CASTAÑEDA DO Jul 04, 2016 17:09
[2016-07-04 17:14] LABS: UR PROTEIN RD 49.9 mg/dL (Not Estab.)
[2016-07-04] MEDS ORDERED: PEG 3350/NA SULF,BICARB,CL/KCL 4,000 ML SOLUTION. PO ONE (17:45)
[2016-07-04 19:00] VITALS: BP 128/71
[2016-07-04] MEDS: ATORVASTATIN CALCIUM 10 MG TABLET. PO SCH (20:23)
[2016-07-04] MEDS: INSULIN DETEMIR 300 UNITS/3 ML INSULN.PEN. SQ SCH (20:32)
[2016-07-04 23:00] VITALS: BP 115/60
[2016-07-05 03:08] VITALS: BP 124/69
[2016-07-05 07:00] VITALS: BP 120/66
[2016-07-05] MEDS: INSULIN ASPART 300 UNITS/3 ML INSULN.PEN SQ SCH ×6 (07:30→17:00)
[2016-07-05] MEDS: PANTOPRAZOLE 40 MG TABLET. PO SCH ×2 (07:30→16:21)
[2016-07-05 08:26] LABS: CEA 162.3 ng/mL (0.0-4.7)
[2016-07-05 09:12] LABS: ALBUMIN 1.5 g/dL (3.4-5.0); CALCIUM 8.5 mg/dL (8.5-10.1); CREATININE 1.2 mg/dL (0.7-1.3); GFR 62.4; PHOSPHORUS 2.2 mg/dL (2.6-4.7); POTASSIUM 4.2 mmol/L (3.5-5.1)
--- NOTE | 2016-07-05 09:51 | PDOC2 ---
GI CONSULT Reason For Consult: EGD and colonoscopy HPI: HPI: 55 y/o male w/ h/o decreased appetite and unintentional weight loss w/ recent gastroenteritis symptoms (n/v, diarrhea). Imaging during hospitalization has shown renal mass, pancreatic/adrenal mass, and hepatic masses. He underwent liver biopsy. Case d/w Dr. Kuo yesterday afternoon; liver pathology showed poorly differentiated adenocarcinoma. GI was consulted for EGD and colonoscopy , as he has previously had neither. He reports GI symptoms including n/v and diarrhea have improved overall. Denies hematemesis, melena, hematochezia. No GERD symptoms or dysphagia. PMH: PMH: obesity, DM, neuropathy, HTN, HLD, prostate cancer s/p radiation FH: Family History: Cancer (lung), DM Social History: Smoke: Quit ALCOHOL: none Drugs: None ROS: GEN: Denies fevers, chills, sweats HEENT: Denies blurred vision, sore throat CV: Denies chest pain RESP: Denies shortness of air, cough GI: Per HPI : Denies hematuria, dysuria ENDO: +weight loss NEURO: Denies confusion, dizziness MSK: Denies weakness, joint pain/swelling SKIN: Denies jaundice, pruritus VItals: Vitals: Vital Signs Date Time Temp Pulse Resp B/P Pulse Ox O2 Delivery O2 Flow Rate FiO2 07/05/16 07:00 100.2 137 20 120/66 98 Room Air 100.2 07/04/16 21:24 2.0 Labs: Labs: Laboratory Tests Test 07/04/16 11:00 07/04/16 20:09 07/05/16 06:00 07/05/16 08:10 Glucose (Fingerstick) 192mg/dL (70-99) 197mg/dL (70-99) Magnesium Level 1.9mg/dL (1.8-2.4) Sodium Level 137mmol/L (136-145) Potassium Level 4.2mmol/L (3.5-5.1) Chloride Level 99mmol/L (98-107) Carbon Dioxide Level 26mmol/L (21-32) Anion Gap 12 (6-14) Blood Urea Nitrogen 12mg/dL (8-26) Creatinine 1.2mg/dL (0.7-1.3) Estimated GFR (Cockcroft-Gault) 62.4 Glucose Level 208mg/dL (70-99) Calcium Level 8.5mg/dL (8.5-10.1) Phosphorus Level 2.2mg/dL (2.6-4.7) Albumin 1.5g/dL (3.4-5.0) Test 07/05/16 08:25 Glucose (Fingerstick) 188mg/dL (70-99) Allergies: Coded Allergies: No Known Allergies (Verified Allergy, Unknown, 06/29/16) Medications: Current Medications Medications (Trade) Dose Ordered Sig/Adilia Route PRN Reason Start Time Stop Time Status Last Admin Dose Admin Sodium Cl/Sod Bicarb/Potass Cl/ PEG (Golytely) 4,000 ml 1X ONCE PO 07/04/16 17:45 07/04/16 17:46 DC 07/04/16 17:48 Imaging: Imaging: Abd US 06/29/16 Impression: Solid appearing mass arising from the left kidney. Diffuse hepatic steatosis. CXR 06/29/16 Impression: No acute cardiopulmonary process seen. CT A/P 06/30/16 Impression: 1. 7.5 cm solid mass is seen arising from the lower pole of the left kidney. This corresponds to the abnormality seen on the patient's ultrasound. It is concerning for a renal neoplasm. 2. 4.8 cm poorly defined mass is seen which involves the left adrenal gland and body of the pancreas. It is difficult to determine whether this mass represents an adrenal carcinoma invading the pancreas versus a pancreatic carcinoma invading the left adrenal gland as outlined above. 3. Multiple low-attenuation mass lesions are seen involving the liver which are concerning for hepatic metastasis. Chest CT 07/02/[address]: 1[address] evidence of metastatic disease in the chest. 2. Coronary artery calcifications. 3. Mild bilateral linear parenchymal scarring and/or atelectasis. PATHOLOGY REPORT * * * * * * * * FINAL DIAGNOSIS: Liver tissue, needle biopsies: - METASTATIC POORLY DIFFERENTIATED ADENOCARCINOMA. PE: GEN: up to chair, obese HEENT: Atraumatic, PERRL LUNGS: CTAB HEART: tachycardic ABD: NABS, S/ND/NT EXTREMITY: No edema SKIN: No rashes, no jaundice NEURO/PSYCH: A & O 3 A/P: A/P: Adenocarcinoma -imaging w/ renal, pancreatic/adrenal, and hepatic masses, s/p liver biopsy -no previous EGD or colonoscopy Recent n/v, diarrhea, weight loss Leukocytosis, anemia of chronic disease -- EGD and colonoscopy this afternoon. D/w Dr. Kuo, RN, and Dr. Monzon 07/04/16. Is NPO after completing GoLytley prep. ELLIE WARE Jul 05, 2016 09:51
[2016-07-05 11:00] VITALS: BP 126/76
--- NOTE | 2016-07-05 11:52 | PDOC ---
Infectious Disease Note Subjective Subjective Better. No pain ROS ROS GEN: Denies fevers, chills, sweats HEENT: Denies blurred vision, sore throat CV: Denies chest pain RESP: Denies shortness of air, cough GI: Denies n/v/d NEURO: Denies confusion, dizziness MSK: Denies weakness, joint pain/swelling Vital Sign Vital Signs Vital Signs Date Time Temp Pulse Resp B/P Pulse Ox O2 Delivery O2 Flow Rate FiO2 07/05/16 11:00 98.4 114 18 126/76 99 Room Air 98.4 07/04/16 21:24 2.0 Physical Exam PHYSICAL EXAM GENERAL: NAD, Alert. 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, no focal neurologic deficit SKIN: No rash IV: ok Labs Lab Laboratory Tests Test 07/04/16 20:09 07/05/16 06:00 07/05/16 08:10 07/05/16 08:25 Glucose (Fingerstick) 197mg/dL (70-99) 188mg/dL (70-99) Magnesium Level 1.9mg/dL (1.8-2.4) Sodium Level 137mmol/L (136-145) Potassium Level 4.2mmol/L (3.5-5.1) Chloride Level 99mmol/L (98-107) Carbon Dioxide Level 26mmol/L (21-32) Anion Gap 12 (6-14) Blood Urea Nitrogen 12mg/dL (8-26) Creatinine 1.2mg/dL (0.7-1.3) Estimated GFR (Cockcroft-Gault) 62.4 Glucose Level 208mg/dL (70-99) Calcium Level 8.5mg/dL (8.5-10.1) Phosphorus Level 2.2mg/dL (2.6-4.7) Albumin 1.5g/dL (3.4-5.0) Objective Assessment Fever - ? tumor ? covers at 7 am Leukocytosis - reactive - better ? Metastatic disease s/p biopsy renal 07/02 DM Plan Plan of Care Cont Augmentin - clinically looks well F/u WBC/temp Awaiting EGD/Colonoscopy Home 07/06 D/w ANA Avina MD Jul 05, 2016 11:52
--- NOTE | 2016-07-05 12:04 | PDOC ---
SUBJECTIVE ROS Renal Mass Doing OK overall OBJECTIVE Vital Signs Vital Signs Date Time Temp Pulse Resp B/P Pulse Ox O2 Delivery O2 Flow Rate FiO2 07/05/16 11:00 98.4 114 18 126/76 99 Room Air 98.4 07/04/16 21:24 2.0 I & 0 Intake and Output 07/05/16 07:00 Intake Total 1200 ml Output Total 3 ml Balance 1197 ml Intake Oral 1200 ml Urine/Stool Mix 3 ml # Voids 4 PHYSICAL EXAM Physical Exam General Appearance: Awake: Alert Oriented x 3 Neck: No JVD or JVP Chest: CTA Aman Heart: S1 S2 Abdomen - Soft NTND Extremities - No Edema Renal Mass; now felt to be asso with : Stage IV poorly differentiated adenocarcinoma, 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 as outlined by Dr Kuo. Will be available prn - pl call with Qs COMMENT/RELEVANT DATA Meds Current Medications Medications (Trade) Dose Ordered Sig/Adilia Start Time Stop Time Status Last Admin Dose Admin Acetaminophen (Tylenol) 650 mg PRN Q6HRS PRN 07/02/16 15:00 07/03/16 20:53 650 MG Acetaminophen/ Hydrocodone Bitart (Lortab 7.5/325) 1 tab PRN Q4HRS PRN 06/29/16 22:00 07/04/16 20:24 1 TAB Allopurinol (Zyloprim) 300 mg DAILY 07/02/16 09:30 07/04/16 10:47 300 MG Amoxicillin/ Clavulanate Potassium (Augmentin 875/ 125mg) 1 tab BID 07/03/16 13:15 07/04/16 20:23 1 TAB Atorvastatin Calcium (Lipitor) 10 mg QHS 06/29/16 21:00 07/04/16 20:23 10 MG Bicalutamide (Casodex) 50 mg DAILY 06/30/16 09:00 07/03/16 08:44 DC 07/02/16 12:07 50 MG Dextrose 12.5 gm PRN Q15MIN PRN 06/29/16 14:30 Fentanyl Citrate (Fentanyl 5ml Vial) 250 mcg 1X ONCE 07/02/16 11:15 07/02/16 11:18 DC 07/02/16 11:15 50 MCG Flumazenil (Romazicon) 0.5 mg STK-MED ONCE 07/02/16 11:04 07/02/16 11:05 DC Gelatin 1 each 1 each STK-MED ONCE 07/02/16 11:13 07/02/16 11:14 DC Insulin Aspart (Novolog) 10 units TIDAC 06/30/16 07:30 07/04/16 17:15 10 UNITS Insulin Detemir (Levemir) 40 units QHS 06/29/16 21:00 07/04/16 20:32 40 UNITS Iohexol (Omnipaque 300 Mg/ml) 75 ml 1X ONCE 07/02/16 08:45 07/02/16 08:46 DC 07/02/16 08:49 75 ML Lidocaine/Sodium Bicarbonate (Buffered Lidocaine 1%) 20 ml 1X ONCE 07/02/16 11:15 07/02/16 11:18 DC Magnesium Sulfate/ Dextrose (Magnesium Sulfate PREMIX 2GM) 50 ml @ 25 mls/hr PRN DAILY PRN 06/30/16 10:45 Midazolam HCl (Versed) 5 mg 1X ONCE 07/02/16 11:15 07/02/16 11:18 DC 07/02/16 11:15 1 MG Naloxone HCl (Narcan) 0.4 mg STK-MED ONCE 07/02/16 11:04 07/02/16 11:05 DC Ondansetron HCl (Zofran) 4 mg PRN Q4HRS PRN 06/29/16 14:30 07/04/16 20:24 4 MG Pantoprazole Sodium (Protonix) 40 mg DAILYAC 06/29/16 16:30 07/04/16 10:46 40 MG Potassium Chloride (Klor-Con) 40 meq 1X ONCE 07/03/16 14:00 07/03/16 14:01 DC 07/03/16 13:22 40 MEQ Sodium Chloride (Iv Sodium Chloride 0.9% 1000ml Bag) 1,000 ml @ 125 mls/hr Q8H 06/29/16 14:30 07/01/16 12:08 DC 07/01/16 10:15 125 MLS/HR Sodium Cl/Sod Bicarb/Potass Cl/ PEG (Golytely) 4,000 ml 1X ONCE 07/04/16 17:45 07/04/16 17:46 DC 07/04/16 17:48 4,000 ML Sodium Phosphate/ Dextrose 263.3333 ml @ 64.167 m... 1X ONCE 07/02/16 14:00 07/02/16 18:06 DC 07/02/16 15:17 64.167 MLS/HR Zolpidem Tartrate 5 mg 5 mg PRN QHS PRN 06/29/16 22:00 07/01/16 20:38 5 MG Lab Laboratory Tests Test 07/04/16 20:09 07/05/16 06:00 07/05/16 08:10 07/05/16 08:25 Glucose (Fingerstick) 197mg/dL (70-99) 188mg/dL (70-99) Magnesium Level 1.9mg/dL (1.8-2.4) Sodium Level 137mmol/L (136-145) Potassium Level 4.2mmol/L (3.5-5.1) Chloride Level 99mmol/L (98-107) Carbon Dioxide Level 26mmol/L (21-32) Anion Gap 12 (6-14) Blood Urea Nitrogen 12mg/dL (8-26) Creatinine 1.2mg/dL (0.7-1.3) Estimated GFR (Cockcroft-Gault) 62.4 Glucose Level 208mg/dL (70-99) Calcium Level 8.5mg/dL (8.5-10.1) Phosphorus Level 2.2mg/dL (2.6-4.7) Albumin 1.5g/dL (3.4-5.0) CASPER GARCIA MD Jul 05, 2016 12:04
--- NOTE | 2016-07-05 12:20 | PDOC ---
SUBJECTIVE Subjective for EGD and colono today OBJECTIVE Objective low grade fever, mild tachycardia Vital Signs Vital Signs Date Time Temp Pulse Resp B/P Pulse Ox O2 Delivery O2 Flow Rate FiO2 07/05/16 11:00 98.4 114 18 126/76 99 Room Air 98.4 07/05/16 07:00 100.2 137 20 120/66 98 Room Air 100.2 07/05/16 03:08 98.2 108 20 124/69 94 Room Air 98.2 07/04/16 23:00 99.0 94 18 115/60 97 Room Air 99.0 07/04/16 21:24 100 Room Air 2.0 07/04/16 20:24 100 Room Air 07/04/16 20:16 Room Air 07/04/16 19:00 99.3 113 20 128/71 100 Room Air 99.3 07/04/16 15:12 98.6 113 16 117/65 96 Room Air 98.6 07/04/16 14:17 20 07/04/16 13:17 20 98 Room Air I & O Intake and Output 07/05/16 07:00 Intake Total 1200 ml Output Total 3 ml Balance 1197 ml Intake Oral 1200 ml Urine/Stool Mix 3 ml # Voids 4 PHYSICAL EXAM Physical Exam lungs clear heart RRR abd soft ext no edema ASSESSMENT/PLAN Assessment/Plan bx with adenocarcinoma primary not known for EGD and colono today, CA 19-9 and CEA pending plan discharge when w/u for primary done to follow with oncology in [facility] discussed with Dr. Rodriguez covering with Augmentin for 1 week BS fair Problems: COMMENT Lab Laboratory Tests Test 07/04/16 20:09 07/05/16 06:00 07/05/16 08:10 07/05/16 08:25 Glucose (Fingerstick) 197mg/dL (70-99) 188mg/dL (70-99) Magnesium Level 1.9mg/dL (1.8-2.4) Sodium Level 137mmol/L (136-145) Potassium Level 4.2mmol/L (3.5-5.1) Chloride Level 99mmol/L (98-107) Carbon Dioxide Level 26mmol/L (21-32) Anion Gap 12 (6-14) Blood Urea Nitrogen 12mg/dL (8-26) Creatinine 1.2mg/dL (0.7-1.3) Estimated GFR (Cockcroft-Gault) 62.4 Glucose Level 208mg/dL (70-99) Calcium Level 8.5mg/dL (8.5-10.1) Phosphorus Level 2.2mg/dL (2.6-4.7) Albumin 1.5g/dL (3.4-5.0) Test 07/05/16 12:07 Glucose (Fingerstick) 201mg/dL (70-99) GEE SALGADO MD Jul 05, 2016 12:20
[2016-07-05] MEDS: SODIUM PHOSPHATE 40 MMOL in IV DEXTROSE 5% 250 ML IV ONE ×2 (12:30→16:21)
[2016-07-05] MEDS ORDERED: IV RINGERS,LACTATED 1000ML 1,000 ML IV SCH ×2 (13:43→14:03)
[2016-07-05] MEDS ORDERED: FENTANYL PF 100 MCG/2 ML VIAL. IV PRN ×4 (13:45→14:15)
[2016-07-05] MEDS ORDERED: LIDOCAINE 1% 1 ML SYRINGE. ID PRN ×2 (13:45→14:15)
[2016-07-05] MEDS ORDERED: MIDAZOLAM HCL 2 MG/2 ML VIAL. IV PRN (13:45)
[2016-07-05] MEDS ORDERED: ONDANSETRON PF 4 MG/2 ML VIAL. IV PRN (14:15)
[2016-07-05] MEDS ORDERED: MORPHINE SULFATE 2 MG/ML DISP.SYRIN. IV PRN (14:15)
[2016-07-05] MEDS ORDERED: PROCHLORPERAZINE 10 MG/2 ML VIAL. IV PRN (14:15)
[2016-07-05] MEDS ORDERED: HYDROMORPHONE 2 MG/ML VIAL. IV PRN (14:15)
[2016-07-05] MEDS ORDERED: PROPOFOL 20 ML IV ONE ×2 (14:41)
[2016-07-05] MEDS ORDERED: LIDOCAINE 2% PF Vial for OR 5 ML VIAL. ONE (14:41)
--- NOTE | 2016-07-05 15:10 | PDOC4 ---
Operative Note Operative Note EGD Colonoscopy Meds propofol per anesthesia Pre-op dx metastatic adenocarcinoma/abnl Ct scan Post- op dx non-erosive gastritis internal hemorrhoids Plan resume diet await tumor markers to direct further adjuvant therapy/surgery LAURA KIRKLAND MD Jul 05, 2016 15:10
[2016-07-05] MEDS ORDERED: PANT40TA5 PO (15:34)
[2016-07-05] MEDS ORDERED: ATOR10TA60 PO (15:34)
[2016-07-05] MEDS ORDERED: INSU100I13 SQ (15:34)
[2016-07-05] MEDS ORDERED: AMOX1TAB11 PO (15:34)
[2016-07-05] MEDS ORDERED: ALLO300T PO (15:34)
--- NOTE | 2016-07-05 15:38 | PDOC3 ---
Discharge Summary* Date of Admission: Jun 29, 2016 Date of Discharge: Jul 05, 2016 Admitting Diagnosis Problems Medical Problems: (1) Metastatic adenocarcinoma Status: Acute Final Diagnosis 1. 7.5 cm solid mass is seen arising from the lower pole of the left kidney.. 2. 4.8 cm poorly defined mass is seen which involves the left adrenal gland and body of the pancreas. It is difficult to determine whether this mass represents an adrenal carcinoma invading the pancreas versus a pancreatic carcinoma invading the left adrenal gland as outlined above. 3. Multiple low-attenuation mass lesions are seen involving the liver Bx was consistant with adenocarcinoma 4. Acute renal failure due to dehydration, nausea, vomiting and diarrhea with electrolyte imbalance. 5. Diabetes mellitus type 2, insulin requiring. 6. History of prostate cancer. 7. Anemia of chronic disease 8. perepheral neuropathy 9.high uric acid 10. high CEA and normal CA19-9 Problems Medical Problems: (1) Metastatic adenocarcinoma Status: Acute CONSULTS Nephrology Dr. Jackson Oncology Dr. Kuo ID Dr. Rodriguez GI Dr. Fowler Procedures abd US CXR CT abd and pelvis and chest Bx liver lesions EGD Colonoscopy Brief Hospital Course Mr. Pino is a 55 old male who presented with N/V/D and dehydration with acute renal failure due to dehydration , abd sono showed renal mass , CT showed renal mass and another mass adrenal or pancreatic also liver mets, liver bx showed adeno carcinoma, his EGD and colono neg for tumor, CEA high but CA19-9 normal, pt was hydrated and his symptomes improved except for fever and mild leukocytosis, ID consulted but not determined if fever due to tumor or post proceedure , given Augmentin for 7 day to cover that possibility even though likely tumor related. at this point he reached maximum benefit of hospital stay need to follow with oncology out pt, he lost wt and does not require any Bp meds now, his insulin requirement much less as well. Disposition/Orders: D/C to Home CONDITION AT DISCHARGE: Improved Diet: Consistent Carbohydrate Scheduled Amlodipine Besylate (Amlodipine Besylate) 5 MG PO DAILY (Reported) Benazepril Hcl (Benazepril Hcl) 1 TAB PO DAILY (Reported) Glimepiride (Glimepiride) 1 TAB PO BID (Reported) Insulin Glargine,Hum.rec.anlog (Lantus Solostar) 60 UNIT SQ QHS (Reported) Insulin Lispro (Humalog) 20 UNIT SQ TIDWMEALS (Reported) Metformin Hcl (Metformin Hcl) 1 TAB PO BID (Reported) Triamterene/Hydrochlorothiazid (Triamterene-Hctz 75-50 Mg Tab) 1 TAB PO DAILY ( Reported) FOLLOW UP APPOINTMENT: Oncology clinic in [facility] Dr. Salgado 2 weeks Time Spent Total time spent with patient [] minutes for coordination of care, counseling, and education. GEE SALGADO MD Jul 05, 2016 15:38
[2016-07-05] MEDS: ALLOPURINOL 300 MG TABLET. PO SCH (16:21)
[2016-07-05] MEDS: AMOXICILLIN/K CLAV 875/125MG TABLET. PO SCH (16:21)
[2016-07-05 16:27] VITALS: BP 120/67
[2016-07-05 19:16] LABS: GAMMA UR 28.2 % (.); M-SPIKE, % Not Observed % (Not Observed); PROTEIN 24 UR 237.7 mg/24 hr (30.0-150.0); PROTEIN UR 9.8 mg/dL (Not Estab.)
[2016-07-05 20:13] LABS: IMMUNOGLOBULIN A 473 mg/dL (90-386); IMMUNOGLOBULIN G 1245 mg/dL (700-1600); IMMUNOGLOBULIN M 41 mg/dL (20-172)
[2016-07-05] MEDS ORDERED: INSULIN DETEMIR 300 UNITS/3 ML INSULN.PEN. SQ SCH (21:00)
== END 2016-07-05 18:30 | disposition home or self-care (01) | DRG 435 ==
LOC: 5 NORTH 13:05
PROVIDERS: ADMIT Internal Medicine; ATTEND Internal Medicine
PROC: 0FB03ZX Excision of Liver, Percutaneous Approach, Diagnostic (ICD-10-PCS; principal; 2016-07-03)
PROC: 0DJ08ZZ Inspection of Upper Intestinal Tract, Via Natural or Artificial Opening Endoscopic (ICD-10-PCS; 2016-07-05)
PROC: 0DJD8ZZ Inspection of Lower Intestinal Tract, Via Natural or Artificial Opening Endoscopic (ICD-10-PCS; 2016-07-05 14:30)
DX: C78.7 Secondary malignant neoplasm of liver and intrahepatic bile duct (principal); E43 Unspecified severe protein-calorie malnutrition; N17.9 Acute kidney failure, unspecified; E87.1 Hypo-osmolality and hyponatremia; D63.8 Anemia in other chronic diseases classified elsewhere; D72.829 Elevated white blood cell count, unspecified; E11.22 Type 2 diabetes mellitus with diabetic chronic kidney disease; E11.40 Type 2 diabetes mellitus with diabetic neuropathy, unspecified; E66.01 Morbid (severe) obesity due to excess calories; E78.5 Hyperlipidemia, unspecified; N18.9 Chronic kidney disease, unspecified; N28.89 Other specified disorders of kidney and ureter; K86.9 Disease of pancreas, unspecified; I12.9 Hypertensive chronic kidney disease with stage 1 through stage 4 chronic kidney disease, or unspecified chronic kidney disease; I25.10 Atherosclerotic heart disease of native coronary artery without angina pectoris; K29.70 Gastritis, unspecified, without bleeding; K64.8 Other hemorrhoids; Z92.3 Personal history of irradiation; Z87.891 Personal history of nicotine dependence; Z85.46 Personal history of malignant neoplasm of prostate; Z83.3 Family history of diabetes mellitus; Z82.5 Family history of asthma and other chronic lower respiratory diseases; Z80.1 Family history of malignant neoplasm of trachea, bronchus and lung; Z79.4 Long term (current) use of insulin; Z68.39 Body mass index [BMI] 39.0-39.9, adult
CPT/HCPCS: 36415; 47000; 71020; 71260; 74176; 76700; 77012; 80053; 80069; 81001; 82378; 82550; 82570; 82607; 82728; 82947; 83520; 83540; 83550; 83735; 84100; 84156; 84165; 84166; 84300; 84443; 84484; 84550; 85007; 85027; 85045; 85610; 86301; 86334; 88307; 88341; 88342; 93005; C1892; J1815; J2250; J2405; J2704; J3010; J7030; J7120; Q9967; G0641